=== PATIENT | male | born 1965 | race African-American/Black ===

== ENCOUNTER 2016-11-13 11:26 | Emergency (ER) | payer MEDICAID, OTHER ==
[~2016-11-13] VITALS: Ht 175.3 cm; Wt 78.0 kg
[2016-11-13] MEDS ORDERED: KETOROLAC 60MG/2ML VIAL IM ONE (17:30)
[2016-11-13 18:16] VITALS: BP 146/92
== END 2016-11-13 17:50 | disposition home or self-care (01) ==
LOC: ER 12:35
DX: E11.65 Type 2 diabetes mellitus with hyperglycemia (principal); M25.562 Pain in left knee; I10 Essential (primary) hypertension; V49.9XXA Car occupant (driver) (passenger) injured in unspecified traffic accident, initial encounter; Y93.89 Activity, other specified; Y92.89 Other specified places as the place of occurrence of the external cause; Y99.8 Other external cause status
CPT/HCPCS: 72040; 72100; 73560; 99284

== ENCOUNTER 2018-05-08 01:16 | Inpatient (IN) | payer MEDICAID, OTHER ==
[~2018-05-08] VITALS: Ht 175.3 cm; Wt 97.5 kg
[2018-05-08] MEDS ORDERED: SODIUM CHLORIDE 0.9% 1000ML BAG (SEPSIS BOLUS) IV ONE (03:45)
[2018-05-08] MEDS ORDERED: CEFTRIAXONE 1 G PREMIX 50 ML IV ONE (03:45)
[2018-05-08 04:28] LABS: BASOPHILS % 0.5 % (0.0-2.0); EOSINOPHILS % 1.3 % (0.0-5.0); HEMATOCRIT. 37.8 % (42.0-52.0); HEMOGLOBIN. 12.3 g/dL (14.0-18.0); LYMPHOCYTES % 32.7 % (20.0-50.0); MEAN CORPUSCULAR HEMOGLOBIN 27.8 pg (28.0-32.0); MEAN CORPUSCULAR VOLUME 85.5 fL (80.0-94.0); MEAN PLATELET VOLUME 8.6 fl (7.4-10.4); MONOCYTES % 12.3 % (2.0-8.0); NEUTROPHILS % 53.2 % (40.0-76.0); PLATELET 324 x1000/uL (130-400); RED BLOOD CELL COUNT 4.43 mill/uL (4.7-6.1)
[2018-05-08 04:30] LABS: CHLORIDE 101 mEq/L (98-107)
[2018-05-08 04:32] LABS: INR 1.1; PROTHROMBIN TIME 11.4 sec (9.1-11.1)
[2018-05-08 05:08] LABS: CLARITY URINE CLOUDY (CLEAR); COLOR URINE YELLOW (YELLOW); KETONES URINE NEGATIVE (NEGATIVE); LEUKOCYTE ESTERASE URINE NEGATIVE (NEGATIVE); NITRITE URINE NEGATIVE (NEGATIVE); OCCULT BLOOD URINE NEGATIVE (NEGATIVE); PROTEIN URINE TRACE (NEGATIVE); SPECIFIC GRAVITY URINE 1.005 (1.005-1.030)
[2018-05-08] MEDS ORDERED: KETOROLAC 30MG/ML VIAL IV ONE (06:15)
[2018-05-08] MEDS ORDERED: ASPIRIN 325MG EC TABLET PO ONE (06:30)
[2018-05-08] MEDS ORDERED: SODIUM CHLORIDE 0.9% 1,000 ML IV ONE (06:30)
[2018-05-08 08:40] VITALS: BP 151/79
[2018-05-08] MEDS ORDERED: BLOOD SUGAR DIAGNOSTIC STRIP TEST SCH (08:42)
[2018-05-08] MEDS ORDERED: ACETAMINOPHEN 650MG/20.3ML UDC GT PRN (08:45)
[2018-05-08] MEDS ORDERED: IPRATROPIUM/ALBUTEROL 0.5-3(2.5)MG/3ML NEB INH PRN (08:45)
[2018-05-08] MEDS ORDERED: DEXTROSE 50% WATER 50ML SYRINGE IV PRN ×2 (08:45→09:15)
[2018-05-08] MEDS ORDERED: ACETAMINOPHEN 650MG SUPP PR PRN (08:45)
[2018-05-08] MEDS ORDERED: ACETAMINOPHEN 325MG TABLET PO PRN (08:45)
[2018-05-08] MEDS ORDERED: DIPHENHYDRAMINE 50MG/ML VIAL IV PRN (08:45)
[2018-05-08] MEDS ORDERED: ENOXAPARIN 40MG/0.4ML SYR SUBCUT SCH (08:45)
[2018-05-08] MEDS ORDERED: ONDANSETRON HCL 4MG/2ML INJ IV PRN (08:45)
[2018-05-08] MEDS ORDERED: DOCUSATE SODIUM 100MG CAPSULE PO PRN (08:45)
[2018-05-08] MEDS ORDERED: AZITHROMYCIN 500 MG in DEXT 5% WATER 250 ML IV SCH (08:45)
[2018-05-08] MEDS ORDERED: MAGNESIUM/ALUMINUM HYDROXIDE/SIMETHICONE 30ML UDC PO PRN (08:45)
[2018-05-08] MEDS ORDERED: NA PHOS,M-B/NA PHOS,DI-BA ENEMA 118ML PR PRN (08:45)
[2018-05-08] MEDS ORDERED: CLONIDINE 0.1MG TABLET PO PRN (08:45)
[2018-05-08 10:16] LABS: T4 FREE 1.67 ng/dL (0.76-1.46)
[2018-05-08] MEDS: GUAIFENESIN 200MG/10ML SUGAR FREE UDC PO PRN ×2 (10:20→16:58)
[2018-05-08] MEDS: ENOXAPARIN 30MG/0.3ML SYR SUBCUT SCH ×2 (10:20→21:04)
[2018-05-08] MEDS: HYDROCODONE/ACETAMINOPHEN 5/325MG TABLET PO PRN ×2 (10:35→18:34)
[2018-05-08] MEDS ORDERED: AMLO5TAB88 MT (10:50)
[2018-05-08] MEDS ORDERED: LISI-604 MT (10:50)
[2018-05-08] MEDS ORDERED: PIOG15TA66 MT (10:50)
[2018-05-08] MEDS ORDERED: OMEG100020 MT (10:50)
[2018-05-08] MEDS ORDERED: ATOR20TA65 MT (10:50)
[2018-05-08] MEDS ORDERED: METF-414 MT (10:50)
[2018-05-08] MEDS ORDERED: ASPI-1158 MT (10:50)
[2018-05-08] MEDS ORDERED: GLIP10TA10 MT (10:50)
[2018-05-08 10:59] VITALS: BP 151/89
[2018-05-08] MEDS ORDERED: PNEUMOCOCCAL 23-VAL P-SAC VAC 0.5 ML IM ONE (11:15)
[2018-05-08] MEDS ORDERED: INFLUENZA VIRUS VACCINE(AFLURIA) 0.5ML SYR IM ONE (11:15)
[2018-05-08 12:00] VITALS: BP 166/95
[2018-05-08] MEDS ORDERED: INSULIN LISPRO 100 UNITS/ML SUBCUT SCH (12:15)
[2018-05-08] MEDS: BLOOD SUGAR DIAGNOSTIC STRIP TEST SCH ×3 (12:33→21:05)
[2018-05-08] MEDS: IPRATROPIUM/ALBUTEROL 0.5-3(2.5)MG/3ML NEB INH SCH ×2 (12:37→21:34)
[2018-05-08] MEDS: AZITHROMYCIN 500 MG in DEXT 5% WATER 250 ML IV SCH (12:45)
[2018-05-08] MEDS: INSULIN LISPRO 100 UNITS/ML SUBCUT SCH ×3 (12:53→21:18)
[2018-05-08 13:05] LABS: *BENZODIAZEPINES SCREEN URINE NEGATIVE (NEGATIVE); *COCAINE SCREEN URINE NEGATIVE (NEGATIVE); METHADONE URINE SCREEN NEGATIVE (NEGATIVE); OPIATES URINE SCREEN NEGATIVE (NEGATIVE)
[2018-05-08 13:06] LABS: *AMPHETAMINES SCREEN URINE NEGATIVE (NEGATIVE); *BARBITURATES SCREEN URINE NEGATIVE (NEGATIVE); CANNABINOID URINE SCREEN NEGATIVE (NEGATIVE); PHENCYCLIDINE URINE SCREEN NEGATIVE (NEGATIVE)
[2018-05-08] MEDS ORDERED: MEDICATION NOT ON FORMULARY EA (Amlodipine Besylate 1 TAB) MT SCH (15:30)
[2018-05-08] MEDS: SODIUM CHLORIDE 0.9% INJ 3ML FLUSH IVF SCH ×2 (15:36→21:05)
[2018-05-08] MEDS: PIOGLITAZONE 15MG TABLET PO SCH (15:36)
[2018-05-08 16:29] VITALS: BP 121/78
[2018-05-08] MEDS: FISH OIL/OMEGA-3 FATTY ACIDS 1000MG CAPSULE PO SCH (16:55)
[2018-05-08] MEDS: AMLODIPINE 5MG TABLET PO SCH (16:56)
[2018-05-08] MEDS: METFORMIN HCL 500MG TABLET PO SCH (16:58)
[2018-05-08] MEDS: GLIPIZIDE 10MG TABLET PO SCH (16:58)
[2018-05-08] MEDS ORDERED: MEDICATION NOT ON FORMULARY EA (Metformin Hcl 1 TAB) MT SCH (17:00)
[2018-05-08] MEDS ORDERED: FISH OIL MT SCH (17:00)
[2018-05-08] MEDS ORDERED: EPA MT SCH (17:00)
[2018-05-08] MEDS ORDERED: DHA MT SCH (17:00)
[2018-05-08] MEDS ORDERED: OMEGA MT SCH (17:00)
[2018-05-08] MEDS ORDERED: [UNRECOGNIZED DRUG - OTHER] MT SCH (17:00)
[2018-05-08 18:25] LABS: CREATINE KINASE 328 IU/L (39-308)
[2018-05-08 18:27] LABS: CREATINE KINASE MB FRACTION 3.7 ng/mL (0.5-3.6)
[2018-05-08 20:00] VITALS: BP 150/82
[2018-05-08] MEDS: GUAIFENESIN 600MG ER TABLET PO SCH (21:04)
[2018-05-08] MEDS: ATORVASTATIN CALCIUM 20MG TABLET PO SCH (21:05)
[2018-05-09] VITALS: BP 147/90
[2018-05-09] MEDS: IPRATROPIUM/ALBUTEROL 0.5-3(2.5)MG/3ML NEB INH SCH ×4 (02:04→19:58)
[2018-05-09 03:06] LABS: CREATINE KINASE 277 IU/L (39-308)
[2018-05-09 04:00] VITALS: BP 110/80
[2018-05-09] MEDS: GUAIFENESIN 200MG/10ML SUGAR FREE UDC PO PRN ×2 (04:12→08:53)
[2018-05-09] MEDS: HYDROCODONE/ACETAMINOPHEN 5/325MG TABLET PO PRN ×3 (04:27→20:01)
[2018-05-09] MEDS: SODIUM CHLORIDE 0.9% INJ 3ML FLUSH IVF SCH ×3 (06:21→21:34)
[2018-05-09] MEDS: BLOOD SUGAR DIAGNOSTIC STRIP TEST SCH ×4 (06:21→21:34)
[2018-05-09] MEDS: METFORMIN HCL 500MG TABLET PO SCH ×2 (06:49→17:40)
[2018-05-09] MEDS: INSULIN LISPRO 100 UNITS/ML SUBCUT SCH ×4 (06:50→21:43)
[2018-05-09 07:20] LABS: CHLORIDE 103 mEq/L (98-107)
[2018-05-09 07:28] LABS: BASOPHILS % 0.4 % (0.0-2.0); EOSINOPHILS % 2.6 % (0.0-5.0); HEMOGLOBIN. 11.4 g/dL (14.0-18.0); LYMPHOCYTES % 31.2 % (20.0-50.0); MEAN CORPUSCULAR HEMOGLOBIN 28.2 pg (28.0-32.0); MEAN CORPUSCULAR VOLUME 86.4 fL (80.0-94.0); MEAN PLATELET VOLUME 8.6 fl (7.4-10.4); MONOCYTES % 13.2 % (2.0-8.0); NEUTROPHILS % 52.6 % (40.0-76.0); PLATELET 257 x1000/uL (130-400); RED BLOOD CELL COUNT 4.05 mill/uL (4.7-6.1)
[2018-05-09 07:45] LABS: LDL CHOLESTEROL 46 mg/dL (5-100)
[2018-05-09 07:46] LABS: HDL CHOLESTEROL 24 mg/dL (40-59)
[2018-05-09 08:00] VITALS: BP 95/78
[2018-05-09] MEDS: ENOXAPARIN 30MG/0.3ML SYR SUBCUT SCH ×2 (08:52→21:34)
[2018-05-09] MEDS: ASPIRIN 81MG EC TABLET PO SCH (08:53)
[2018-05-09] MEDS: PIOGLITAZONE 15MG TABLET PO SCH (08:53)
[2018-05-09] MEDS: GLIPIZIDE 10MG TABLET PO SCH ×2 (09:00→17:41)
[2018-05-09] MEDS ORDERED: MEDICATION NOT ON FORMULARY EA (Aspirin (Aspirin Ec) 1 TAB) MT SCH (09:00)
[2018-05-09] MEDS: LISINOPRIL 20MG TABLET GT SCH (09:00)
[2018-05-09] MEDS ORDERED: MEDICATION NOT ON FORMULARY EA (Lisinopril 1 TAB) MT SCH (09:00)
[2018-05-09] MEDS: AMLODIPINE 5MG TABLET PO SCH (09:01)
[2018-05-09] MEDS: FISH OIL/OMEGA-3 FATTY ACIDS 1000MG CAPSULE PO SCH ×2 (09:01→17:40)
[2018-05-09] MEDS: AZITHROMYCIN 500 MG in DEXT 5% WATER 250 ML IV SCH (09:08)
[2018-05-09] MEDS: GUAIFENESIN 600MG ER TABLET PO SCH ×2 (09:08→21:33)
[2018-05-09] MEDS ORDERED: REGADENOSON 0.4 MG/5 ML IV SCH (09:15)
[2018-05-09 12:15] VITALS: BP 143/81
[2018-05-09 16:00] VITALS: BP 122/81
[2018-05-09 20:00] VITALS: BP 154/87
[2018-05-09] MEDS: ATORVASTATIN CALCIUM 20MG TABLET PO SCH (21:33)
[2018-05-10] VITALS: BP 152/67
[2018-05-10] MEDS: HYDROCODONE/ACETAMINOPHEN 5/325MG TABLET PO PRN ×2 (00:03→10:02)
[2018-05-10] MEDS: IPRATROPIUM/ALBUTEROL 0.5-3(2.5)MG/3ML NEB INH SCH ×3 (02:00→14:10)
[2018-05-10 04:00] VITALS: BP 160/102
[2018-05-10] MEDS: BLOOD SUGAR DIAGNOSTIC STRIP TEST SCH ×2 (06:20→11:29)
[2018-05-10] MEDS: SODIUM CHLORIDE 0.9% INJ 3ML FLUSH IVF SCH ×2 (06:20→13:19)
[2018-05-10] MEDS: INSULIN LISPRO 100 UNITS/ML SUBCUT SCH ×3 (06:21→11:35)
[2018-05-10] MEDS: METFORMIN HCL 500MG TABLET PO SCH (07:15)
[2018-05-10] MEDS: GUAIFENESIN 200MG/10ML SUGAR FREE UDC PO PRN (07:38)
[2018-05-10 08:00] VITALS: BP 163/106
[2018-05-10] MEDS ORDERED: REGADENOSON 0.4 MG/5 ML IV ONE (08:54)
[2018-05-10] MEDS: AZITHROMYCIN 500 MG in DEXT 5% WATER 250 ML IV SCH (10:01)
[2018-05-10] MEDS: PIOGLITAZONE 15MG TABLET PO SCH (10:02)
[2018-05-10] MEDS: GLIPIZIDE 10MG TABLET PO SCH (10:02)
[2018-05-10] MEDS: GUAIFENESIN 600MG ER TABLET PO SCH (10:02)
[2018-05-10] MEDS: FISH OIL/OMEGA-3 FATTY ACIDS 1000MG CAPSULE PO SCH (10:02)
[2018-05-10] MEDS: ASPIRIN 81MG EC TABLET PO SCH (10:02)
[2018-05-10] MEDS: AMLODIPINE 5MG TABLET PO SCH (10:02)
[2018-05-10] MEDS: ENOXAPARIN 30MG/0.3ML SYR SUBCUT SCH (10:03)
[2018-05-10] MEDS: LISINOPRIL 20MG TABLET GT SCH (10:03)
[2018-05-10 12:00] VITALS: BP 138/91
[2018-05-10 12:22] LABS: BASOPHILS % 0.6 % (0.0-2.0); EOSINOPHILS % 2.9 % (0.0-5.0); HEMATOCRIT. 37.2 % (42.0-52.0); LYMPHOCYTES % 21.1 % (20.0-50.0); MEAN CORPUSCULAR HEMOGLOBIN 27.7 pg (28.0-32.0); MEAN CORPUSCULAR VOLUME 85.4 fL (80.0-94.0); MEAN PLATELET VOLUME 7.9 fl (7.4-10.4); NEUTROPHILS % 64.4 % (40.0-76.0); PLATELET 264 x1000/uL (130-400); RED BLOOD CELL COUNT 4.35 mill/uL (4.7-6.1); RED CELL DISTRIBUTION WIDTH 12.8 % (11.6-14.6)
[2018-05-10] MEDS ORDERED: COR3 MT (12:23)
[2018-05-10 12:24] LABS: CHLORIDE 99 mEq/L (98-107)
[2018-05-10] MEDS ORDERED: AZIT500T2 MT (12:24)
[2018-05-10] MEDS ORDERED: CARVEDILOL 6.25 MG TABLET PO SCH (12:30)
[2018-05-10 15:54] VITALS: BP 165/83
[2018-05-10 16:00] VITALS: BP 146/78
== END 2018-05-10 16:10 | disposition home or self-care (01) | DRG 243 ==
LOC: ER 01:16 → 5WST 06:20 → EDBEDREQSVC 06:24 → EDBEDREQ 06:26 → ENRESERV 07:33
PROVIDERS: ADMIT Family Medicine; ATTEND Family Medicine
DX: K21.9 Gastro-esophageal reflux disease without esophagitis (principal); B18.2 Chronic viral hepatitis C; J40 Bronchitis, not specified as acute or chronic; E11.9 Type 2 diabetes mellitus without complications; I10 Essential (primary) hypertension; E78.00 Pure hypercholesterolemia, unspecified; F17.210 Nicotine dependence, cigarettes, uncomplicated; E78.5 Hyperlipidemia, unspecified; Z71.6 Tobacco abuse counseling; Z79.82 Long term (current) use of aspirin; Z79.84 Long term (current) use of oral hypoglycemic drugs; Z79.899 Other long term (current) drug therapy
CPT/HCPCS: 36415; 71045; 78452; 80061; 80305; 82550; 82553; 82962; 83036; 83605; 83880; 84145; 84439; 84443; 84484; 85379; 87804; 90686; 90732; 93005; 93017; 93306; 93970; 94640; 96365; 96375; 99285; A9500; J0456; J0696; J1650; J1815; J1885; J2785; J7030; J7060; J7620

== ENCOUNTER 2018-06-17 06:33 | Inpatient (IN) | payer MEDICAID, OTHER ==
[~2018-06-17] VITALS: Ht 175.3 cm; Wt 94.3 kg
[~2018-06-17 06:33] MED LIST: AMLO5TAB88 MT; ASPI-1158 MT; ATOR20TA65 MT; AZIT500T2 MT; COR3 MT; GLIP10TA10 MT; LISI-604 MT; METF-414 MT; OMEG100020 MT; PIOG15TA66 MT
[2018-06-17 08:19] LABS: BASOPHILS % 1.2 % (0.0-2.0); EOSINOPHILS % 9.5 % (0.0-5.0); HEMATOCRIT. 42.7 % (42.0-52.0); LYMPHOCYTES % 19.9 % (20.0-50.0); MEAN CORPUSCULAR HEMOGLOBIN 28.7 pg (28.0-32.0); MEAN CORPUSCULAR VOLUME 87.5 fL (80.0-94.0); MEAN PLATELET VOLUME 9.2 fl (7.4-10.4); MONOCYTES % 9.6 % (2.0-8.0); NEUTROPHILS % 59.8 % (40.0-76.0); PLATELET 160 x1000/uL (130-400); RED BLOOD CELL COUNT 4.88 mill/uL (4.7-6.1)
[2018-06-17 08:24] LABS: CHLORIDE 104 mEq/L (98-107)
[2018-06-17 08:27] LABS: ETHANOL BLOOD < 10 mg/dL
[2018-06-17 08:43] LABS: PROTHROMBIN TIME 10.4 sec (9.1-11.1)
[2018-06-17] MEDS ORDERED: ALBUTEROL (0.083%) 2.5MG/3ML NEB HHN STA (09:09)
[2018-06-17] MEDS ORDERED: KETOROLAC 30MG/ML VIAL IV ONE (09:15)
[2018-06-17] MEDS ORDERED: BENZONATATE 100MG CAPSULE PO ONE (09:45)
[2018-06-17] MEDS ORDERED: SODIUM CHLORIDE 0.9% 1,000 ML IV ONE (09:55)
[2018-06-17 15:30] VITALS: BP 166/117
[2018-06-17] MEDS ORDERED: ACETAMINOPHEN 325MG TABLET PO PRN (15:45)
[2018-06-17] MEDS ORDERED: MAGNESIUM HYDROXIDE 400MG/5ML 30ML UDC PO PRN (15:45)
[2018-06-17] MEDS ORDERED: ONDANSETRON HCL 4MG/2ML INJ IV PRN (15:45)
[2018-06-17] MEDS ORDERED: IPRATROPIUM/ALBUTEROL 0.5-3(2.5)MG/3ML NEB INH PRN (15:45)
[2018-06-17] MEDS ORDERED: CLONIDINE 0.1MG TABLET PO PRN (15:45)
[2018-06-17] MEDS ORDERED: MAGNESIUM/ALUMINUM HYDROXIDE/SIMETHICONE 30ML UDC PO PRN (15:45)
[2018-06-17] MEDS ORDERED: DIPHENHYDRAMINE 50MG/ML VIAL IV PRN (15:45)
[2018-06-17] MEDS ORDERED: IPRATROPIUM/ALBUTEROL 0.5-3(2.5)MG/3ML NEB HHN SCH (15:45)
[2018-06-17] MEDS ORDERED: DEXTROSE 50% WATER 50ML SYRINGE IV PRN (15:45)
[2018-06-17] MEDS ORDERED: TEMAZEPAM 15MG CAPSULE PO PRN (15:45)
[2018-06-17 16:00] VITALS: BP 172/116
[2018-06-17] MEDS ORDERED: HYDRALAZINE 20MG/ML VIAL IV PRN (16:00)
[2018-06-17] MEDS: CARVEDILOL 3.125 MG TABLET PO SCH ×2 (16:03→21:54)
[2018-06-17] MEDS: PROMETHAZINE/DEXTROMETHORPHAN 6.25-15MG/5ML BOTTLE 120ML PO PRN (16:39)
[2018-06-17] MEDS: BLOOD SUGAR DIAGNOSTIC STRIP TEST SCH ×2 (17:02→21:00)
[2018-06-17] MEDS: INSULIN LISPRO 100 UNITS/ML SUBCUT SCH ×2 (17:11→22:08)
[2018-06-17] MEDS: ENOXAPARIN 40MG/0.4ML SYR SUBCUT SCH (17:12)
[2018-06-17] MEDS: METFORMIN HCL 500MG TABLET PO SCH (17:13)
[2018-06-17] MEDS: BENZONATATE 100MG CAPSULE PO SCH (17:13)
[2018-06-17] MEDS: AZITHROMYCIN 500 MG TABLET PO SCH (17:13)
[2018-06-17] MEDS: METHYLPREDNISOLONE SOD SUCC 125 MG/2 ML VIAL IV SCH (17:13)
[2018-06-17] MEDS: IPRATROPIUM/ALBUTEROL 0.5-3(2.5)MG/3ML NEB HHN SCH (20:04)
[2018-06-17] MEDS: ATORVASTATIN CALCIUM 20MG TABLET PO SCH (21:53)
[2018-06-17] MEDS: GUAIFENESIN 600MG ER TABLET PO SCH (21:53)
[2018-06-17] MEDS: HYDRALAZINE HCL 50MG TABLET PO SCH (21:54)
[2018-06-17] MEDS: GUAIFENESIN 200MG/10ML SUGAR FREE UDC PO PRN (22:00)
[2018-06-17] MEDS: SODIUM CHLORIDE 0.9% INJ 3ML FLUSH IVF SCH (22:02)
[2018-06-17] MEDS: INSULIN GLARGINE UD 100 UNITS/ML SYR SUBCUT SCH (22:09)
[2018-06-18] MEDS: METHYLPREDNISOLONE SOD SUCC 125 MG/2 ML VIAL IV SCH ×2 (01:00→09:15)
[2018-06-18] MEDS: BENZONATATE 100MG CAPSULE PO SCH ×3 (02:02→18:13)
[2018-06-18] MEDS: IPRATROPIUM/ALBUTEROL 0.5-3(2.5)MG/3ML NEB HHN SCH ×4 (02:37→21:06)
[2018-06-18] MEDS: HYDRALAZINE HCL 50MG TABLET PO SCH ×3 (06:46→23:03)
[2018-06-18] MEDS: SODIUM CHLORIDE 0.9% INJ 3ML FLUSH IVF SCH ×3 (06:47→22:07)
[2018-06-18 08:00] VITALS: BP 122/79
[2018-06-18] MEDS: BLOOD SUGAR DIAGNOSTIC STRIP TEST SCH ×4 (08:37→21:11)
[2018-06-18] MEDS: ASPIRIN 81MG EC TABLET PO SCH (09:13)
[2018-06-18] MEDS: METFORMIN HCL 500MG TABLET PO SCH ×2 (09:13→18:13)
[2018-06-18] MEDS: CARVEDILOL 3.125 MG TABLET PO SCH ×2 (09:14→21:56)
[2018-06-18] MEDS: AMLODIPINE 5MG TABLET PO SCH (09:15)
[2018-06-18] MEDS: OMEPRAZOLE 20MG CAPSULE EXTENDED RELEASE PO SCH (09:15)
[2018-06-18] MEDS ORDERED: REGADENOSON 0.4 MG/5 ML IV SCH (09:15)
[2018-06-18] MEDS: GUAIFENESIN 600MG ER TABLET PO SCH ×2 (09:15→21:55)
[2018-06-18] MEDS: GLIPIZIDE 10MG TABLET PO SCH (09:15)
[2018-06-18] MEDS: INSULIN LISPRO 100 UNITS/ML SUBCUT SCH ×4 (09:17→22:09)
[2018-06-18] MEDS: GUAIFENESIN 200MG/10ML SUGAR FREE UDC PO PRN ×2 (09:27→18:13)
[2018-06-18] MEDS: INSULIN GLARGINE UD 100 UNITS/ML SYR SUBCUT SCH ×2 (10:00→22:09)
[2018-06-18 12:00] VITALS: BP 123/79
[2018-06-18 12:59] LABS: T4 FREE 1.23 ng/dL (0.76-1.46)
[2018-06-18 16:00] VITALS: BP 130/82
[2018-06-18 17:05] LABS: CREATINE KINASE 87 IU/L (39-308); CREATINE KINASE MB FRACTION 4.8 ng/mL (0.5-3.6)
[2018-06-18] MEDS: AZITHROMYCIN 500 MG TABLET PO SCH (18:13)
[2018-06-18] MEDS: CEFTRIAXONE 1 G PREMIX 50 ML IV SCH (18:14)
[2018-06-18] MEDS: ENOXAPARIN 40MG/0.4ML SYR SUBCUT SCH (18:14)
[2018-06-18 19:27] LABS: *AMPHETAMINES SCREEN URINE NEGATIVE (NEGATIVE); *BARBITURATES SCREEN URINE NEGATIVE (NEGATIVE); *BENZODIAZEPINES SCREEN URINE NEGATIVE (NEGATIVE); CANNABINOID URINE SCREEN NEGATIVE (NEGATIVE); PHENCYCLIDINE URINE SCREEN NEGATIVE (NEGATIVE)
[2018-06-18 19:28] LABS: *COCAINE SCREEN URINE NEGATIVE (NEGATIVE); METHADONE URINE SCREEN NEGATIVE (NEGATIVE); OPIATES URINE SCREEN NEGATIVE (NEGATIVE)
[2018-06-18] MEDS: BUDESONIDE 0.5MG/2ML NEB HHN SCH (21:07)
[2018-06-18] MEDS: ATORVASTATIN CALCIUM 20MG TABLET PO SCH (21:55)
[2018-06-19 00:20] LABS: CREATINE KINASE 92 IU/L (39-308)
[2018-06-19 00:23] LABS: CREATINE KINASE MB FRACTION 4.6 ng/mL (0.5-3.6)
[2018-06-19] MEDS: IPRATROPIUM/ALBUTEROL 0.5-3(2.5)MG/3ML NEB HHN SCH ×4 (01:15→21:52)
[2018-06-19] MEDS: BENZONATATE 100MG CAPSULE PO SCH ×3 (02:30→18:36)
[2018-06-19 06:24] LABS: CHLORIDE 102 mEq/L (98-107)
[2018-06-19 06:39] LABS: CREATINE KINASE 78 IU/L (39-308)
[2018-06-19 06:47] LABS: CREATINE KINASE MB FRACTION 3.7 ng/mL (0.5-3.6)
[2018-06-19] MEDS: BLOOD SUGAR DIAGNOSTIC STRIP TEST SCH ×4 (06:53→21:02)
[2018-06-19] MEDS: SODIUM CHLORIDE 0.9% INJ 3ML FLUSH IVF SCH ×3 (07:00→21:03)
[2018-06-19] MEDS: HYDRALAZINE HCL 50MG TABLET PO SCH ×3 (07:07→21:02)
[2018-06-19 07:26] LABS: HEMATOCRIT. 39.5 % (42.0-52.0); HEMOGLOBIN. 12.5 g/dL (14.0-18.0); MEAN CORPUSCULAR HEMOGLOBIN 27.9 pg (28.0-32.0); MEAN CORPUSCULAR VOLUME 87.9 fL (80.0-94.0); MEAN PLATELET VOLUME 10.3 fl (7.4-10.4); PLATELET 187 x1000/uL (130-400); RED BLOOD CELL COUNT 4.49 mill/uL (4.7-6.1); RED CELL DISTRIBUTION WIDTH 14.1 % (11.6-14.6)
[2018-06-19 08:00] VITALS: BP 129/87
[2018-06-19] MEDS: BUDESONIDE 0.5MG/2ML NEB HHN SCH ×2 (08:20→21:52)
[2018-06-19] MEDS: GUAIFENESIN 600MG ER TABLET PO SCH ×2 (09:35→21:02)
[2018-06-19] MEDS: AMLODIPINE 5MG TABLET PO SCH (09:35)
[2018-06-19] MEDS: OMEPRAZOLE 20MG CAPSULE EXTENDED RELEASE PO SCH (09:35)
[2018-06-19] MEDS: ASPIRIN 81MG EC TABLET PO SCH (09:35)
[2018-06-19] MEDS: GLIPIZIDE 10MG TABLET PO SCH (09:35)
[2018-06-19] MEDS: METFORMIN HCL 500MG TABLET PO SCH ×2 (09:35→18:36)
[2018-06-19] MEDS: CARVEDILOL 3.125 MG TABLET PO SCH ×2 (09:36→21:02)
[2018-06-19] MEDS: INSULIN LISPRO 100 UNITS/ML SUBCUT SCH ×4 (09:38→21:08)
[2018-06-19] MEDS: GUAIFENESIN 200MG/10ML SUGAR FREE UDC PO PRN ×2 (09:41→18:44)
[2018-06-19 11:08] LABS: PLATELET ESTIMATE NORMAL
[2018-06-19 12:00] VITALS: BP 117/81
[2018-06-19 16:00] VITALS: BP 118/75
[2018-06-19] MEDS: AZITHROMYCIN 500 MG TABLET PO SCH (18:36)
[2018-06-19] MEDS: ENOXAPARIN 40MG/0.4ML SYR SUBCUT SCH (18:37)
[2018-06-19] MEDS: CEFTRIAXONE 1 G PREMIX 50 ML IV SCH (18:37)
[2018-06-19 20:00] VITALS: BP 118/81
[2018-06-19] MEDS ORDERED: VITAMINS A AND D OINT TUBE TOP PRN (20:00)
[2018-06-19] MEDS: ATORVASTATIN CALCIUM 20MG TABLET PO SCH (21:02)
[2018-06-19] MEDS: INSULIN GLARGINE UD 100 UNITS/ML SYR SUBCUT SCH (21:03)
[2018-06-19] MEDS: PROMETHAZINE/DEXTROMETHORPHAN 6.25-15MG/5ML BOTTLE 120ML PO PRN (21:14)
[2018-06-20 00:26] VITALS: BP 123/75
[2018-06-20] MEDS: BENZONATATE 100MG CAPSULE PO SCH ×2 (01:20→10:00)
[2018-06-20] MEDS: IPRATROPIUM/ALBUTEROL 0.5-3(2.5)MG/3ML NEB HHN SCH ×2 (03:08→09:11)
[2018-06-20 04:00] VITALS: BP 124/84
[2018-06-20] MEDS: HYDRALAZINE HCL 50MG TABLET PO SCH ×2 (06:00→13:56)
[2018-06-20] MEDS: SODIUM CHLORIDE 0.9% INJ 3ML FLUSH IVF SCH (06:12)
[2018-06-20] MEDS: BLOOD SUGAR DIAGNOSTIC STRIP TEST SCH ×2 (06:12→13:04)
[2018-06-20 08:00] VITALS: BP 126/94
[2018-06-20] MEDS: OMEPRAZOLE 20MG CAPSULE EXTENDED RELEASE PO SCH (08:14)
[2018-06-20] MEDS: GLIPIZIDE 10MG TABLET PO SCH (08:14)
[2018-06-20] MEDS: INSULIN LISPRO 100 UNITS/ML SUBCUT SCH ×2 (08:15→13:05)
[2018-06-20] MEDS: GUAIFENESIN 600MG ER TABLET PO SCH (08:25)
[2018-06-20] MEDS: AMLODIPINE 5MG TABLET PO SCH (08:26)
[2018-06-20] MEDS: GUAIFENESIN 200MG/10ML SUGAR FREE UDC PO PRN (08:27)
[2018-06-20] MEDS: CARVEDILOL 3.125 MG TABLET PO SCH (08:27)
[2018-06-20] MEDS: METFORMIN HCL 500MG TABLET PO SCH (08:27)
[2018-06-20] MEDS: ASPIRIN 81MG EC TABLET PO SCH (08:27)
[2018-06-20] MEDS: BUDESONIDE 0.5MG/2ML NEB HHN SCH (09:12)
[2018-06-20 12:00] VITALS: BP 130/87
[2018-06-20 14:06] VITALS: BP 130/87
== END 2018-06-20 15:05 | disposition home or self-care (01) | DRG 133 ==
LOC: ER 06:33 → 7WST 10:03 → ENRESERV 13:18
PROVIDERS: ADMIT Internal Medicine; ATTEND Internal Medicine
DX: J96.00 Acute respiratory failure, unspecified whether with hypoxia or hypercapnia (principal); I50.23 Acute on chronic systolic (congestive) heart failure; J18.9 Pneumonia, unspecified organism; D72.1 Eosinophilia; I11.0 Hypertensive heart disease with heart failure; E11.9 Type 2 diabetes mellitus without complications; E78.00 Pure hypercholesterolemia, unspecified; E78.5 Hyperlipidemia, unspecified; J44.0 Chronic obstructive pulmonary disease with (acute) lower respiratory infection; F17.200 Nicotine dependence, unspecified, uncomplicated; B19.20 Unspecified viral hepatitis C without hepatic coma; R07.89 Other chest pain
CPT/HCPCS: 36415; 71045; 71250; 80048; 80061; 80305; 80320; 82550; 82553; 82962; 83036; 83880; 84439; 84443; 84484; 85379; 93005; 93306; 93970; 94640; 96361; 96374; 99285; J0696; J1650; J1815; J1885; J2930; J7030; J7050; J7611; J7620; J7626; G0480

== ENCOUNTER 2019-10-13 01:30 | Inpatient (IN) | payer MEDICAID ==
[~2019-10-13] VITALS: Ht 170.2 cm; Wt 102.1 kg
[~2019-10-13 01:30] MED LIST changes: -AZIT500T2 MT; -PIOG15TA66 MT
[2019-10-13] MEDS ORDERED: MORPHINE SULFATE 4 MG/ML CPJ (NOT FOR IM USE) IV ONE (01:45)
[2019-10-13] MEDS ORDERED: FAMOTIDINE 20MG/2ML VIAL IV ONE (01:45)
[2019-10-13] MEDS ORDERED: ONDANSETRON HCL 4MG/2ML INJ IV ONE (01:45)
[2019-10-13 02:54] LABS: CHLORIDE 94 mEq/L (98-107)
[2019-10-13 03:00] LABS: ETHANOL BLOOD < 10 mg/dL
[2019-10-13 03:04] LABS: BASOPHILS % 0.8 % (0.0-2.0); HEMATOCRIT. 47.4 % (42.0-52.0); HEMOGLOBIN. 15.8 g/dL (14.0-18.0); LYMPHOCYTES % 14.5 % (20.0-50.0); MEAN CORPUSCULAR HEMOGLOBIN 27.4 pg (28.0-32.0); MEAN CORPUSCULAR VOLUME 82.3 fL (80.0-94.0); MEAN PLATELET VOLUME 10.6 fl (7.4-10.4); MONOCYTES % 5.1 % (2.0-8.0); NEUTROPHILS % 79.6 % (40.0-76.0); PLATELET 196 x1000/uL (130-400); RED BLOOD CELL COUNT 5.76 mill/uL (4.7-6.1); RED CELL DISTRIBUTION WIDTH 15.9 % (11.6-14.6)
[2019-10-13 03:10] LABS: PROTHROMBIN TIME 11.3 sec (9.6-11.0)
[2019-10-13] MEDS ORDERED: FUROSEMIDE 40MG/4ML VIAL IVP ONE (03:30)
[2019-10-13] MEDS ORDERED: NITROGLYCERIN OINT 1GM/INCH UDPKT TD ONE (03:30)
[2019-10-13] MEDS ORDERED: ASPIRIN 325MG EC TABLET PO ONE (05:45)
[2019-10-13 06:04] LABS: CLARITY URINE CLEAR (CLEAR); COLOR URINE YELLOW (YELLOW); KETONES URINE 3+ (NEGATIVE); LEUKOCYTE ESTERASE URINE NEGATIVE (NEGATIVE); NITRITE URINE NEGATIVE (NEGATIVE); OCCULT BLOOD URINE NEGATIVE (NEGATIVE); PROTEIN URINE 3+ (NEGATIVE)
[2019-10-13 08:30] VITALS: BP 116/76
[2019-10-13] MEDS ORDERED: DEXTROSE 50% WATER 50ML SYRINGE IV PRN (09:15)
[2019-10-13] MEDS ORDERED: FAMOTIDINE 20MG/2ML VIAL IV SCH (09:45)
[2019-10-13] MEDS ORDERED: FUROSEMIDE 20MG/2ML VIAL IVP SCH (10:45)
[2019-10-13] MEDS ORDERED: INSULIN GLARGINE UD 100 UNITS/ML SYR SUBCUT SCH (11:00)
[2019-10-13] MEDS ORDERED: AZITHROMYCIN 500 MG in DEXT 5% WATER 250 ML IV SCH (11:00)
[2019-10-13] MEDS ORDERED: CEFTRIAXONE 1 G PREMIX 50 ML IV SCH (11:00)
[2019-10-13 12:00] VITALS: BP 124/79
[2019-10-13] MEDS ORDERED: ALBUTEROL (0.083%) 2.5MG/3ML NEB HHN SCH (12:00)
[2019-10-13] MEDS ORDERED: BLOOD SUGAR DIAGNOSTIC STRIP TEST SCH (12:40)
[2019-10-13] MEDS ORDERED: INSULIN LISPRO 100 UNITS/ML SUBCUT SCH (13:10)
[2019-10-14] MEDS ORDERED: ENOXAPARIN 40MG/0.4ML SYR SUBCUT SCH (09:00)
== END 2019-10-13 13:12 | disposition left against medical advice (07) | DRG 243 ==
LOC: ER 01:30 → 7WST 04:44 → EDBEDREQ 04:53 → ENRESERV 07:37 → 7WST 08:52
PROVIDERS: ADMIT Internal Medicine; ATTEND Internal Medicine
DX: K21.9 Gastro-esophageal reflux disease without esophagitis (principal); J96.00 Acute respiratory failure, unspecified whether with hypoxia or hypercapnia; Z53.29 Procedure and treatment not carried out because of patient's decision for other reasons; I50.23 Acute on chronic systolic (congestive) heart failure; I11.0 Hypertensive heart disease with heart failure; E11.9 Type 2 diabetes mellitus without complications; R10.9 Unspecified abdominal pain; D72.810 Lymphocytopenia; R74.0 Nonspecific elevation of levels of transaminase and lactic acid dehydrogenase [LDH]; J84.9 Interstitial pulmonary disease, unspecified; Z20.828 Contact with and (suspected) exposure to other viral communicable diseases; B19.20 Unspecified viral hepatitis C without hepatic coma; I42.9 Cardiomyopathy, unspecified; Z87.891 Personal history of nicotine dependence; Z79.899 Other long term (current) drug therapy; Z79.82 Long term (current) use of aspirin
CPT/HCPCS: 36415; 71045; 74176; 80053; 80320; 81003; 82962; 83036; 83880; 84484; 85025; 93005; 99285; J0456; J0696; J1815; J1940; J2270; J2405; J3490; J7060; G0480; U0003-CS

== ENCOUNTER 2020-11-21 04:43 | Inpatient (IN) | payer MEDICAID, OTHER ==
[~2020-11-21] VITALS: Ht 175.3 cm; Wt 87.1 kg
[~2020-11-21 04:43] MED LIST changes: -ASPI-1158 MT; +ASPI-1406 MT; -LISI-604 MT; +LISI20TA31 MT
[2020-11-21] MEDS ORDERED: FUROSEMIDE 40MG/4ML VIAL IV ONE (05:45)
[2020-11-21] MEDS ORDERED: NITROGLYCERIN OINT 1GM/INCH UDPKT TD ONE (05:45)
[2020-11-21 06:12] LABS: HEMATOCRIT. 43.6 % (42.0-52.0); HEMOGLOBIN. 13.7 g/dL (14.0-18.0); MEAN CORPUSCULAR HEMOGLOBIN 25.5 pg (28.0-32.0); MEAN CORPUSCULAR VOLUME 81.2 fL (80.0-94.0); MEAN PLATELET VOLUME 8.8 fl (7.4-10.4); PLATELET 166 x1000/uL (130-400); RED BLOOD CELL COUNT 5.37 mill/uL (4.7-6.1); RED CELL DISTRIBUTION WIDTH 15.9 % (11.6-14.6)
[2020-11-21 06:16] LABS: CHLORIDE 111 mEq/L (98-107)
[2020-11-21 06:20] LABS: ETHANOL BLOOD < 10 mg/dL
[2020-11-21 06:50] LABS: PLATELET ESTIMATE NORMAL
[2020-11-21 08:38] LABS: CLARITY URINE CLEAR (CLEAR); COLOR URINE YELLOW (YELLOW); KETONES URINE NEGATIVE (NEGATIVE); LEUKOCYTE ESTERASE URINE NEGATIVE (NEGATIVE); NITRITE URINE NEGATIVE (NEGATIVE); OCCULT BLOOD URINE 1+ (NEGATIVE); PH URINE 5.5 (4.5-8.0); PROTEIN URINE 3+ (NEGATIVE); SPECIFIC GRAVITY URINE 1.009 (1.005-1.030)
[2020-11-21 08:58] LABS: *AMPHETAMINES SCREEN URINE NEGATIVE (NEGATIVE); *BARBITURATES SCREEN URINE NEGATIVE (NEGATIVE)
[2020-11-21 08:59] LABS: *BENZODIAZEPINES SCREEN URINE NEGATIVE (NEGATIVE); *COCAINE SCREEN URINE PRESUMTIVE POSITIVE (NEGATIVE); CANNABINOID URINE SCREEN PRESUMTIVE POSITIVE (NEGATIVE); METHADONE URINE SCREEN NEGATIVE (NEGATIVE); OPIATES URINE SCREEN NEGATIVE (NEGATIVE); PHENCYCLIDINE URINE SCREEN NEGATIVE (NEGATIVE)
[2020-11-21] MEDS ORDERED: ACETAMINOPHEN 325MG TABLET PO PRN (12:45)
[2020-11-21] MEDS ORDERED: IPRATROPIUM/ALBUTEROL 0.5-3(2.5)MG/3ML NEB HHN PRN (12:45)
[2020-11-21] MEDS ORDERED: ONDANSETRON HCL 4MG/2ML INJ IV PRN (12:45)
[2020-11-21] MEDS ORDERED: DIPHENHYDRAMINE 50MG/ML VIAL IV PRN (12:45)
[2020-11-21] MEDS: ENOXAPARIN 40MG/0.4ML SYR SUBCUT SCH (14:00)
[2020-11-21] MEDS ORDERED: MORPHINE SULFATE 2 MG/ML CPJ (NOT FOR IM USE) IV NR (14:45)
[2020-11-21] MEDS ORDERED: NPH,100V SQ (16:35)
[2020-11-21] MEDS ORDERED: INSU100V37 SQ (16:35)
[2020-11-21] MEDS ORDERED: CARV3.1242 MT (16:35)
[2020-11-21] MEDS ORDERED: INSU100I33 SQ (16:35)
[2020-11-21] MEDS ORDERED: ATOR10TA MT (16:35)
[2020-11-21 16:36] VITALS: BP 177/124
[2020-11-21 16:47] VITALS: BP 177/124
[2020-11-21] MEDS: CLONIDINE 0.1MG TABLET PO PRN (17:09)
[2020-11-21] MEDS: SPIRONOLACTONE 25MG TABLET PO SCH (17:09)
[2020-11-21] MEDS: FUROSEMIDE 40MG/4ML VIAL IVP SCH (17:09)
[2020-11-21] MEDS: LISINOPRIL 5MG TABLET PO SCH (17:09)
[2020-11-21] MEDS: AMLODIPINE 5MG TABLET PO SCH (17:09)
[2020-11-21] MEDS ORDERED: FUROSEMIDE 40MG/4ML VIAL IV SCH (17:15)
[2020-11-21] MEDS ORDERED: DEXTROSE 50% WATER 50ML SYRINGE IV PRN (19:15)
[2020-11-21 20:00] VITALS: BP 136/86
[2020-11-21] MEDS: INSULIN LISPRO 100 UNITS/ML SUBCUT SCH (20:40)
[2020-11-21] MEDS: BLOOD SUGAR DIAGNOSTIC STRIP TEST SCH (20:40)
[2020-11-21] MEDS ORDERED: ATORVASTATIN CALCIUM 40MG TABLET PO SCH (21:00)
[2020-11-22 01:40] VITALS: BP 156/101
[2020-11-22] MEDS: CLONIDINE 0.1MG TABLET PO PRN ×2 (02:30→09:17)
[2020-11-22 04:00] VITALS: BP 149/93
[2020-11-22] MEDS: FUROSEMIDE 40MG/4ML VIAL IVP SCH (05:13)
[2020-11-22 07:08] LABS: BASOPHILS % 0.6 % (0.0-2.0); EOSINOPHILS % 0.9 % (0.0-5.0); HEMOGLOBIN. 13.5 g/dL (14.0-18.0); LYMPHOCYTES % 40.7 % (20.0-50.0); MEAN CORPUSCULAR HEMOGLOBIN 25.4 pg (28.0-32.0); MEAN CORPUSCULAR VOLUME 80.8 fL (80.0-94.0); MONOCYTES % 8.4 % (2.0-8.0); NEUTROPHILS % 49.4 % (40.0-76.0); PLATELET 160 x1000/uL (130-400); RED BLOOD CELL COUNT 5.33 mill/uL (4.7-6.1); RED CELL DISTRIBUTION WIDTH 15.9 % (11.6-14.6)
[2020-11-22] MEDS: BLOOD SUGAR DIAGNOSTIC STRIP TEST SCH ×3 (07:20→12:46)
[2020-11-22 07:25] LABS: CHLORIDE 111 mEq/L (98-107)
[2020-11-22 07:43] LABS: LDL CHOLESTEROL 151 mg/dL (5-100)
[2020-11-22 07:45] LABS: HDL CHOLESTEROL 35 mg/dL (40-59)
[2020-11-22] MEDS: INSULIN LISPRO 100 UNITS/ML SUBCUT SCH ×2 (07:50→12:45)
[2020-11-22] MEDS ORDERED: ASPIRIN 81MG TABLET PO SCH (09:00)
[2020-11-22] MEDS: AMLODIPINE 5MG TABLET PO SCH (09:16)
[2020-11-22 09:17] VITALS: BP 149/110
[2020-11-22] MEDS: SPIRONOLACTONE 25MG TABLET PO SCH (09:17)
[2020-11-22] MEDS: LISINOPRIL 5MG TABLET PO SCH (09:17)
[2020-11-22 10:17] VITALS: BP 130/92
[2020-11-22 12:00] VITALS: BP 130/88
[2020-11-22] MEDS ORDERED: IOHEXOL-300 100 ML BOTTLE ONE (12:02)
[2020-11-22] MEDS: ENOXAPARIN 40MG/0.4ML SYR SUBCUT SCH (12:43)
== END 2020-11-22 16:55 | disposition left against medical advice (07) | DRG 194 ==
LOC: ER 04:43 → EDBEDREQ 12:06 → EDBEDREQTM 12:06 → ENRESERV 15:13 → 7WST 16:22 → 6WST 11-22 01:38
PROVIDERS: ADMIT Internal Medicine; ATTEND Internal Medicine
DX: I11.0 Hypertensive heart disease with heart failure (principal); I21.A1 Myocardial infarction type 2; E88.09 Other disorders of plasma-protein metabolism, not elsewhere classified; I43 Cardiomyopathy in diseases classified elsewhere; N17.9 Acute kidney failure, unspecified; I50.23 Acute on chronic systolic (congestive) heart failure; E11.65 Type 2 diabetes mellitus with hyperglycemia; E78.5 Hyperlipidemia, unspecified; F14.10 Cocaine abuse, uncomplicated; Z20.822 Contact with and (suspected) exposure to COVID-19; Z53.29 Procedure and treatment not carried out because of patient's decision for other reasons; F17.210 Nicotine dependence, cigarettes, uncomplicated; I16.0 Hypertensive urgency; J44.9 Chronic obstructive pulmonary disease, unspecified; Z91.14 Patient's other noncompliance with medication regimen
CPT/HCPCS: 36415; 71045; 71260; 80053; 80061; 80305; 80320; 81003; 82962; 83036; 83735; 83880; 84443; 84484; 85025; 93005; 93306; 93970; 99291; J1650; J1815; J1940; Q9967; U0003; U0005; G0480

== ENCOUNTER 2020-12-16 20:32 | Emergency (ER) | payer OTHER ==
[~2020-12-16] VITALS: Ht 175.3 cm; Wt 89.0 kg
[~2020-12-16 20:32] MED LIST changes: +ATOR10TA MT; +CARV3.1242 MT; +INSU100I33 SQ; +INSU100V37 SQ; +NPH,100V SQ
[2020-12-16] MEDS ORDERED: FUROSEMIDE 40MG/4ML VIAL IV ONE (22:15)
[2020-12-16 22:45] LABS: HEMATOCRIT. 43.9 % (42.0-52.0); HEMOGLOBIN. 13.9 g/dL (14.0-18.0); MEAN CORPUSCULAR HEMOGLOBIN 25.3 pg (28.0-32.0); MEAN CORPUSCULAR VOLUME 79.8 fL (80.0-94.0); MEAN PLATELET VOLUME 8.6 fl (7.4-10.4); PLATELET 145 x1000/uL (130-400); RED CELL DISTRIBUTION WIDTH 16.8 % (11.6-14.6)
[2020-12-16 22:50] LABS: CHLORIDE 109 mEq/L (98-107)
[2020-12-16 23:19] LABS: PLATELET ESTIMATE NORMAL
[2020-12-17 00:31] LABS: CLARITY URINE CLEAR (CLEAR); COLOR URINE YELLOW (YELLOW); KETONES URINE TRACE (NEGATIVE); LEUKOCYTE ESTERASE URINE NEGATIVE (NEGATIVE); NITRITE URINE NEGATIVE (NEGATIVE); OCCULT BLOOD URINE TRACE (NEGATIVE); PROTEIN URINE 4+ (NEGATIVE); SPECIFIC GRAVITY URINE 1.029 (1.005-1.030)
[2020-12-17 00:43] LABS: *AMPHETAMINES SCREEN URINE NEGATIVE (NEGATIVE); *BARBITURATES SCREEN URINE NEGATIVE (NEGATIVE); *BENZODIAZEPINES SCREEN URINE NEGATIVE (NEGATIVE); METHADONE URINE SCREEN NEGATIVE (NEGATIVE); OPIATES URINE SCREEN NEGATIVE (NEGATIVE)
[2020-12-17 00:44] LABS: CANNABINOID URINE SCREEN PRESUMTIVE POSITIVE (NEGATIVE); PHENCYCLIDINE URINE SCREEN NEGATIVE (NEGATIVE)
[2020-12-17 00:45] LABS: *COCAINE SCREEN URINE PRESUMTIVE POSITIVE (NEGATIVE)
[2020-12-17 01:30] VITALS: BP 128/72
[2020-12-17] MEDS ORDERED: FURO-152 MT (01:53)
== END 2020-12-17 01:30 | disposition home or self-care (01) ==
LOC: ER 20:32
DX: R60.0 Localized edema (principal); E10.65 Type 1 diabetes mellitus with hyperglycemia; I11.0 Hypertensive heart disease with heart failure; I50.9 Heart failure, unspecified; J44.9 Chronic obstructive pulmonary disease, unspecified; E78.00 Pure hypercholesterolemia, unspecified; Z91.14 Patient's other noncompliance with medication regimen; Z79.4 Long term (current) use of insulin
CPT/HCPCS: 36415; 71045; 80053; 80305; 81003; 83880; 84484; 85025; 93005; 96374; 99285; J1940

== ENCOUNTER 2021-01-08 08:01 | Emergency (ER) | payer OTHER, MEDICAID ==
[~2021-01-08] VITALS: Ht 175.3 cm; Wt 92.0 kg
[~2021-01-08 08:01] MED LIST changes: +FURO-152 MT
[2021-01-08] MEDS ORDERED: FUROSEMIDE 40MG/4ML VIAL IVP ONE (08:15)
[2021-01-08 08:57] LABS: HEMATOCRIT. 44.6 % (42.0-52.0); MEAN CORPUSCULAR HEMOGLOBIN 25.2 pg (28.0-32.0); MEAN CORPUSCULAR VOLUME 80.5 fL (80.0-94.0); MEAN PLATELET VOLUME 8.8 fl (7.4-10.4); PLATELET 173 x1000/uL (130-400); RED BLOOD CELL COUNT 5.54 mill/uL (4.7-6.1); RED CELL DISTRIBUTION WIDTH 17.7 % (11.6-14.6)
[2021-01-08 09:07] LABS: CHLORIDE 107 mEq/L (98-107)
[2021-01-08 09:35] LABS: PLATELET ESTIMATE NORMAL
[2021-01-08 10:00] VITALS: BP 146/106
[2021-01-08 10:52] LABS: *BARBITURATES SCREEN URINE NEGATIVE (NEGATIVE); *COCAINE SCREEN URINE PRESUMTIVE POSITIVE (NEGATIVE)
[2021-01-08 10:53] LABS: *AMPHETAMINES SCREEN URINE NEGATIVE (NEGATIVE); *BENZODIAZEPINES SCREEN URINE NEGATIVE (NEGATIVE); CANNABINOID URINE SCREEN NEGATIVE (NEGATIVE); METHADONE URINE SCREEN NEGATIVE (NEGATIVE); OPIATES URINE SCREEN NEGATIVE (NEGATIVE); PHENCYCLIDINE URINE SCREEN NEGATIVE (NEGATIVE)
== END 2021-01-08 10:41 | disposition home or self-care (01) ==
LOC: ER 08:01
DX: M79.89 Other specified soft tissue disorders (principal); I11.0 Hypertensive heart disease with heart failure; I50.9 Heart failure, unspecified; E78.00 Pure hypercholesterolemia, unspecified; E11.9 Type 2 diabetes mellitus without complications; J44.1 Chronic obstructive pulmonary disease with (acute) exacerbation; Z91.14 Patient's other noncompliance with medication regimen; Z79.899 Other long term (current) drug therapy; Z79.82 Long term (current) use of aspirin
CPT/HCPCS: 36415; 71045; 80053; 80305; 83880; 84484; 85025; 93005; 93970; 96374; 99285; J1940

== ENCOUNTER 2021-04-08 14:11 | Inpatient (IN) | payer MEDICAID, OTHER ==
[~2021-04-08] VITALS: Ht 175.3 cm; Wt 104.3 kg
[2021-04-08 15:10] LABS: HEMATOCRIT. 39.4 % (42.0-52.0); HEMOGLOBIN. 12.2 g/dL (14.0-18.0); MEAN CORPUSCULAR HEMOGLOBIN 25.1 pg (28.0-32.0); MEAN CORPUSCULAR VOLUME 80.8 fL (80.0-94.0); MEAN PLATELET VOLUME 8.9 fl (7.4-10.4); PLATELET 176 x1000/uL (130-400); RED BLOOD CELL COUNT 4.88 mill/uL (4.7-6.1); RED CELL DISTRIBUTION WIDTH 16.9 % (11.6-14.6)
[2021-04-08 15:16] LABS: CHLORIDE 107 mEq/L (98-107)
[2021-04-08 15:21] LABS: ETHANOL BLOOD < 10 mg/dL
[2021-04-08] MEDS ORDERED: ASPIRIN 81MG TABLET PO ONE (15:45)
[2021-04-08] MEDS ORDERED: FUROSEMIDE 40MG/4ML VIAL IV ONE (15:45)
[2021-04-08] MEDS ORDERED: ENOXAPARIN 80MG/0.8ML SYR SUBCUT ONE (18:00)
[2021-04-08 18:28] LABS: PLATELET ESTIMATE NORMAL
[2021-04-08] MEDS ORDERED: ONDANSETRON HCL 4MG/2ML INJ IV PRN (19:00)
[2021-04-08] MEDS ORDERED: HYDROCODONE/ACETAMINOPHEN 5/325MG TABLET PO PRN (19:00)
[2021-04-08] MEDS ORDERED: ACETAMINOPHEN 325MG TABLET PO PRN (19:00)
[2021-04-08 20:06] LABS: PHOSPHORUS 2.8 mg/dL (2.5-4.9)
[2021-04-08 20:11] LABS: CREATINE KINASE MB FRACTION 5.7 ng/mL (0.5-3.6)
[2021-04-08 20:15] LABS: *AMPHETAMINES SCREEN URINE NEGATIVE (NEGATIVE); *BARBITURATES SCREEN URINE NEGATIVE (NEGATIVE); *BENZODIAZEPINES SCREEN URINE NEGATIVE (NEGATIVE); *COCAINE SCREEN URINE PRESUMTIVE POSITIVE (NEGATIVE)
[2021-04-08 20:16] LABS: CANNABINOID URINE SCREEN PRESUMTIVE POSITIVE (NEGATIVE); METHADONE URINE SCREEN NEGATIVE (NEGATIVE); OPIATES URINE SCREEN NEGATIVE (NEGATIVE); PHENCYCLIDINE URINE SCREEN NEGATIVE (NEGATIVE)
[2021-04-08] MEDS: IPRATROPIUM/ALBUTEROL 0.5-3(2.5)MG/3ML NEB HHN PRN (21:14)
[2021-04-09] MEDS: IPRATROPIUM/ALBUTEROL 0.5-3(2.5)MG/3ML NEB HHN PRN ×2 (00:20→04:49)
[2021-04-09] MEDS ORDERED: NALOXONE HCL 0.4MG/ML VIAL IV PRN (07:45)
[2021-04-09 09:17] LABS: BASOPHILS % 0.5 % (0.0-2.0); EOSINOPHILS % 0.4 % (0.0-5.0); HEMATOCRIT. 37.4 % (42.0-52.0); HEMOGLOBIN. 11.9 g/dL (14.0-18.0); LYMPHOCYTES % 7.4 % (20.0-50.0); MEAN CORPUSCULAR HEMOGLOBIN 25.7 pg (28.0-32.0); MEAN CORPUSCULAR VOLUME 80.8 fL (80.0-94.0); MEAN PLATELET VOLUME 9.8 fl (7.4-10.4); MONOCYTES % 7.5 % (2.0-8.0); NEUTROPHILS % 84.2 % (40.0-76.0); PLATELET 154 x1000/uL (130-400); RED BLOOD CELL COUNT 4.62 mill/uL (4.7-6.1)
[2021-04-09 09:24] LABS: CHLORIDE 106 mEq/L (98-107)
[2021-04-09] MEDS: FUROSEMIDE 40MG/4ML VIAL IV SCH ×2 (09:54→17:39)
[2021-04-09 15:34] VITALS: BP 137/92
[2021-04-09 15:45] VITALS: BP 137/92
[2021-04-09] MEDS ORDERED: DEXTROSE 50% WATER 50ML SYRINGE IV PRN ×2 (15:45)
[2021-04-09] MEDS ORDERED: INFLUENZA VACCINE 05/PF 0.5 ML SYRINGE IM ONE (15:58)
[2021-04-09] MEDS ORDERED: PNEUMOCOCCAL 23-VAL P-SAC VAC 0.5 ML IM ONE (15:59)
[2021-04-09] MEDS ORDERED: ATORVASTATIN CALCIUM 20MG TABLET PO SCH (17:00)
[2021-04-09] MEDS: BLOOD SUGAR DIAGNOSTIC STRIP TEST SCH ×2 (17:17→21:00)
[2021-04-09] MEDS: INSULIN LISPRO 100 UNITS/ML SUBCUT SCH ×2 (17:35→21:00)
[2021-04-09] MEDS: ASPIRIN 81MG EC TABLET PO SCH (17:39)
[2021-04-09 20:00] VITALS: BP 136/92
[2021-04-09] MEDS: ATORVASTATIN CALCIUM 10MG TABLET PO SCH (21:30)
[2021-04-09] MEDS: INSULIN GLARGINE UD 100 UNITS/ML SYR SUBCUT SCH (22:00)
[2021-04-10] VITALS: BP 144/88
[2021-04-10] MEDS: IPRATROPIUM/ALBUTEROL 0.5-3(2.5)MG/3ML NEB HHN PRN ×5 (00:56→21:57)
[2021-04-10 04:00] VITALS: BP 158/91
[2021-04-10] MEDS: BLOOD SUGAR DIAGNOSTIC STRIP TEST SCH ×4 (07:20→21:58)
[2021-04-10 08:30] VITALS: BP 141/99
[2021-04-10 08:46] LABS: HEMATOCRIT. 36.5 % (42.0-52.0); HEMOGLOBIN. 11.6 g/dL (14.0-18.0); MEAN CORPUSCULAR VOLUME 81.8 fL (80.0-94.0); MEAN PLATELET VOLUME 10.3 fl (7.4-10.4); PLATELET 125 x1000/uL (130-400); RED BLOOD CELL COUNT 4.46 mill/uL (4.7-6.1); RED CELL DISTRIBUTION WIDTH 17.4 % (11.6-14.6)
[2021-04-10] MEDS: FUROSEMIDE 40MG/4ML VIAL IV SCH ×2 (09:10→18:07)
[2021-04-10] MEDS: ASPIRIN 81MG EC TABLET PO SCH (09:10)
[2021-04-10] MEDS: INSULIN LISPRO 100 UNITS/ML SUBCUT SCH ×4 (09:11→22:06)
[2021-04-10] MEDS ORDERED: BUMETANIDE 1MG/4ML VIAL IV SCH ×2 (10:35→18:00)
[2021-04-10 11:10] LABS: BG BASE EXCESS -2.7 mmol/L (-2.0-2.0); BG DEOXYHEMOGLOBIN 0.9 % (0.0-5.0); BG FRACTION INSPIRED OXYGEN 60; BG HCO3 ACT 22.5 mmol/L (22.0-26.0); BG METHEMOGLOBIN 0.4 % (0.0-1.5); BG OXYGEN SATURATION 99.1 % (92.0-98.5); BG OXYHEMOGLOBIN 98.7 % (94.0-97.0); BG PCO2 40.6 mmHg (35.0-45.0); BG PH 7.362 (7.350-7.450); BG SAMPLE SITE RIGHT BRACHIAL; BG TOTAL HEMOGLOBIN 12.7 g/dL (12.0-18.0); BG VENT MODE MASK - SIMPLE
[2021-04-10 12:30] VITALS: BP 127/74
[2021-04-10 15:14] LABS: PLATELET ESTIMATE NORMAL
[2021-04-10 16:30] VITALS: BP 150/90
[2021-04-10] MEDS: METHYLPREDNISOLONE SOD SUCC 40 MG/ML VIAL IV SCH ×2 (18:07→23:00)
[2021-04-10 20:00] VITALS: BP 163/101
[2021-04-10] MEDS: ATORVASTATIN CALCIUM 10MG TABLET PO SCH (21:00)
[2021-04-10] MEDS: INSULIN GLARGINE UD 100 UNITS/ML SYR SUBCUT SCH (22:00)
[2021-04-11] VITALS: BP 139/79
[2021-04-11] MEDS: IPRATROPIUM BROMIDE (0.02%) 0.5MG/2.5ML NEB HHN SCH ×6 (00:08→20:49)
[2021-04-11 04:36] VITALS: BP 124/83
[2021-04-11] MEDS: FUROSEMIDE 40MG/4ML VIAL IV SCH (06:14)
[2021-04-11] MEDS: BLOOD SUGAR DIAGNOSTIC STRIP TEST SCH ×4 (06:15→21:06)
[2021-04-11 07:38] LABS: HEMATOCRIT. 36.2 % (42.0-52.0); HEMOGLOBIN. 11.4 g/dL (14.0-18.0); MEAN CORPUSCULAR HEMOGLOBIN 25.9 pg (28.0-32.0); MEAN CORPUSCULAR VOLUME 82.1 fL (80.0-94.0); MEAN PLATELET VOLUME 9.5 fl (7.4-10.4); PLATELET 123 x1000/uL (130-400); RED BLOOD CELL COUNT 4.41 mill/uL (4.7-6.1); RED CELL DISTRIBUTION WIDTH 17.1 % (11.6-14.6)
[2021-04-11 07:56] LABS: CREATINE KINASE MB FRACTION 5.8 ng/mL (0.5-3.6)
[2021-04-11 08:00] VITALS: BP 128/72
[2021-04-11] MEDS: METHYLPREDNISOLONE SOD SUCC 40 MG/ML VIAL IV SCH ×3 (08:45→22:05)
[2021-04-11] MEDS: ASPIRIN 81MG EC TABLET PO SCH (08:45)
[2021-04-11] MEDS: INSULIN LISPRO 100 UNITS/ML SUBCUT SCH ×4 (09:05→20:44)
[2021-04-11] MEDS: ACETAMINOPHEN 325MG TABLET PO PRN (09:13)
[2021-04-11] MEDS: BUMETANIDE 1MG/4ML VIAL IV SCH ×2 (11:20→18:09)
[2021-04-11] MEDS ORDERED: SODIUM POLYSTYRENE SULFONATE 15 G/60 ML BOT PO SCH (11:30)
[2021-04-11 12:00] VITALS: BP 127/82
[2021-04-11] MEDS ORDERED: LIDOCAINE HCL 1% 20ML VIAL (Pyxis) INJ ONE (12:41)
[2021-04-11 16:00] VITALS: BP 124/82
[2021-04-11 16:22] LABS: CLARITY URINE CLEAR (CLEAR); COLOR URINE YELLOW (YELLOW); KETONES URINE NEGATIVE (NEGATIVE); LEUKOCYTE ESTERASE URINE NEGATIVE (NEGATIVE); NITRITE URINE NEGATIVE (NEGATIVE); OCCULT BLOOD URINE TRACE (NEGATIVE); PROTEIN URINE 4+ (NEGATIVE); SPECIFIC GRAVITY URINE 1.015 (1.005-1.030); UROBILINOGEN URINE 0.2 E.U./dL (0.2-1.0)
[2021-04-11] MEDS ORDERED: METOLAZONE 5MG TABLET PO NR (17:30)
[2021-04-11 20:00] VITALS: BP 158/90
[2021-04-11] MEDS: ATORVASTATIN CALCIUM 10MG TABLET PO SCH (20:43)
[2021-04-11] MEDS ORDERED: INSULIN GLARGINE UD 100 UNITS/ML SYR SUBCUT SCH (22:00)
[2021-04-12] VITALS (7 sets, daily range): BP systolic 130–157; BP diastolic 85–107
[2021-04-12 00:10] LABS: PLATELET ESTIMATE SLIGHTLY DECREASED
[2021-04-12] MEDS: IPRATROPIUM BROMIDE (0.02%) 0.5MG/2.5ML NEB HHN SCH (01:32)
[2021-04-12] MEDS ORDERED: IPRATROPIUM BROMIDE (0.02%) 0.5MG/2.5ML NEB INH SCH (04:00)
[2021-04-12] MEDS: BUMETANIDE 1MG/4ML VIAL IV SCH ×3 (06:08→17:11)
[2021-04-12] MEDS: METHYLPREDNISOLONE SOD SUCC 40 MG/ML VIAL IV SCH ×3 (06:08→22:27)
[2021-04-12] MEDS: BLOOD SUGAR DIAGNOSTIC STRIP TEST SCH ×4 (06:18→21:21)
[2021-04-12] MEDS: ALBUTEROL 6.7GM HFA INHALER ORI SCH ×4 (06:18→22:00)
[2021-04-12] MEDS: INSULIN LISPRO 100 UNITS/ML SUBCUT SCH ×4 (06:50→21:28)
[2021-04-12] MEDS ORDERED: IPRATROPIUM/ALBUTEROL 0.5-3(2.5)MG/3ML NEB ORI PRN (07:00)
[2021-04-12] MEDS ORDERED: ATORVASTATIN CALCIUM 10MG TABLET PO SCH (09:00)
[2021-04-12] MEDS: ASPIRIN 81MG EC TABLET PO SCH (09:24)
[2021-04-12] MEDS ORDERED: BUMETANIDE 1MG/4ML VIAL IV SCH (18:00)
[2021-04-12] MEDS ORDERED: CEFTRIAXONE 1 G PREMIX 50 ML IV SCH (20:15)
[2021-04-12] MEDS: ATORVASTATIN CALCIUM 10MG TABLET PO SCH (21:21)
[2021-04-12 21:41] LABS: HEMATOCRIT. 40.4 % (42.0-52.0); HEMOGLOBIN. 12.5 g/dL (14.0-18.0); MEAN CORPUSCULAR HEMOGLOBIN 25.5 pg (28.0-32.0); MEAN CORPUSCULAR VOLUME 82.6 fL (80.0-94.0); MEAN PLATELET VOLUME 9.5 fl (7.4-10.4); PLATELET 193 x1000/uL (130-400); RED CELL DISTRIBUTION WIDTH 16.9 % (11.6-14.6)
[2021-04-12 21:55] LABS: CHLORIDE 99 mEq/L (98-107)
[2021-04-12] MEDS ORDERED: CEFTRIAXONE 1,000 MG in DEXTROSE 5% WATER 50 ML IV SCH (22:30)
[2021-04-12] MEDS: INSULIN GLARGINE UD 100 UNITS/ML SYR SUBCUT SCH (22:37)
[2021-04-12 22:56] LABS: PLATELET ESTIMATE NORMAL
[2021-04-13] VITALS: BP 147/99
[2021-04-13] MEDS: ALBUTEROL (0.083%) 2.5MG/3ML NEB HHN PRN ×4 (01:53→16:08)
[2021-04-13 04:00] VITALS: BP 147/102
[2021-04-13] MEDS: METOLAZONE 5MG TABLET PO SCH (05:12)
[2021-04-13] MEDS: BLOOD SUGAR DIAGNOSTIC STRIP TEST SCH ×4 (06:24→21:46)
[2021-04-13] MEDS: METHYLPREDNISOLONE SOD SUCC 40 MG/ML VIAL IV SCH ×2 (06:24→17:34)
[2021-04-13] MEDS ORDERED: INSULIN LISPRO 100 UNITS/ML SUBCUT NR (07:45)
[2021-04-13] MEDS: INSULIN LISPRO 100 UNITS/ML SUBCUT SCH ×4 (07:54→21:53)
[2021-04-13 08:00] VITALS: BP 132/96
[2021-04-13 08:28] LABS: HEMATOCRIT. 37.5 % (42.0-52.0); HEMOGLOBIN. 11.6 g/dL (14.0-18.0); MEAN CORPUSCULAR HEMOGLOBIN 25.5 pg (28.0-32.0); MEAN CORPUSCULAR VOLUME 82.7 fL (80.0-94.0); MEAN PLATELET VOLUME 9.6 fl (7.4-10.4); PLATELET 174 x1000/uL (130-400); RED BLOOD CELL COUNT 4.54 mill/uL (4.7-6.1); RED CELL DISTRIBUTION WIDTH 16.6 % (11.6-14.6)
[2021-04-13] MEDS: ASPIRIN 81MG EC TABLET PO SCH (09:42)
[2021-04-13] MEDS: BUMETANIDE 1MG/4ML VIAL IV SCH ×3 (09:42→17:34)
[2021-04-13] MEDS: INSULIN GLARGINE UD 100 UNITS/ML SYR SUBCUT SCH (10:06)
[2021-04-13 12:00] VITALS: BP 163/99
[2021-04-13] MEDS: CLONIDINE 0.1MG TABLET PO PRN (13:28)
[2021-04-13 16:00] VITALS: BP 166/87
[2021-04-13 17:21] LABS: PLATELET ESTIMATE NORMAL
[2021-04-13 20:00] VITALS: BP 154/88
[2021-04-13] MEDS ORDERED: VANCOMYCIN 2,000 MG in DEXT 5% WATER 500 ML IV NR (21:00)
[2021-04-13] MEDS: ATORVASTATIN CALCIUM 10MG TABLET PO SCH (21:46)
[2021-04-13] MEDS: MEROPENEM 1,000 MG in SODIUM CHLORIDE 0.9% 100 ML IV SCH (22:00)
[2021-04-13] MEDS ORDERED: INSULIN GLARGINE UD 100 UNITS/ML SYR SUBCUT SCH (22:00)
[2021-04-14] VITALS: BP 135/79
[2021-04-14] MEDS: ALBUTEROL (0.083%) 2.5MG/3ML NEB HHN PRN ×2 (00:25→11:26)
[2021-04-14] MEDS: MEROPENEM 1,000 MG in SODIUM CHLORIDE 0.9% 100 ML IV SCH ×3 (01:18→15:36)
[2021-04-14 04:00] VITALS: BP 148/87
[2021-04-14] MEDS: METOLAZONE 5MG TABLET PO SCH ×2 (06:19→08:21)
[2021-04-14] MEDS: BLOOD SUGAR DIAGNOSTIC STRIP TEST SCH ×4 (06:35→20:56)
[2021-04-14 08:07] VITALS: BP 145/99
[2021-04-14] MEDS: ASPIRIN 81MG EC TABLET PO SCH (08:21)
[2021-04-14] MEDS: INSULIN LISPRO 100 UNITS/ML SUBCUT SCH ×4 (08:22→20:57)
[2021-04-14 08:32] LABS: PHOSPHORUS 2.9 mg/dL (2.5-4.9)
[2021-04-14 08:48] LABS: HEMATOCRIT. 36.5 % (42.0-52.0); HEMOGLOBIN. 11.4 g/dL (14.0-18.0); MEAN CORPUSCULAR HEMOGLOBIN 25.3 pg (28.0-32.0); MEAN CORPUSCULAR VOLUME 81.4 fL (80.0-94.0); MEAN PLATELET VOLUME 10.1 fl (7.4-10.4); PLATELET 190 x1000/uL (130-400); RED BLOOD CELL COUNT 4.49 mill/uL (4.7-6.1); RED CELL DISTRIBUTION WIDTH 16.4 % (11.6-14.6)
[2021-04-14] MEDS: BUMETANIDE 1MG/4ML VIAL IV SCH ×2 (10:02→17:59)
[2021-04-14] MEDS: INSULIN GLARGINE UD 100 UNITS/ML SYR SUBCUT SCH ×2 (10:05→22:00)
[2021-04-14 12:00] VITALS: BP 159/98
[2021-04-14 16:00] VITALS: BP 147/105
[2021-04-14 17:30] LABS: BG BASE EXCESS 3.1 mmol/L (-2.0-2.0); BG CARBOXYHEMOGLOBIN 0.2 % (0.5-1.5); BG DEOXYHEMOGLOBIN 0.3 % (0.0-5.0); BG FRACTION INSPIRED OXYGEN 100; BG HCO3 ACT 27.8 mmol/L (22.0-26.0); BG METHEMOGLOBIN 0.3 % (0.0-1.5); BG OXYGEN SATURATION 99.7 % (92.0-98.5); BG OXYHEMOGLOBIN 99.2 % (94.0-97.0); BG PCO2 42.6 mmHg (35.0-45.0); BG PH 7.432 (7.350-7.450); BG PO2 469.4 mmHg (75.0-100.0); BG SAMPLE SITE RIGHT BRACHIAL; BG TOTAL HEMOGLOBIN 13.4 g/dL (12.0-18.0); BG VENT MODE MASK - NRB
[2021-04-14 17:54] LABS: PLATELET ESTIMATE NORMAL
[2021-04-14 20:00] VITALS: BP 147/102
[2021-04-14] MEDS ORDERED: VANCOMYCIN 1 G PREMIX 200 ML IV SCH (21:00)
[2021-04-14] MEDS: ATORVASTATIN CALCIUM 10MG TABLET PO SCH (21:01)
[2021-04-15 00:32] VITALS: BP 149/95
[2021-04-15] MEDS: MEROPENEM 1,000 MG in SODIUM CHLORIDE 0.9% 100 ML IV SCH ×4 (01:02→21:11)
[2021-04-15 04:00] VITALS: BP 170/105
[2021-04-15] MEDS: BLOOD SUGAR DIAGNOSTIC STRIP TEST SCH ×4 (06:39→21:11)
[2021-04-15 09:05] LABS: PHOSPHORUS 2.5 mg/dL (2.5-4.9)
[2021-04-15] MEDS: INSULIN LISPRO 100 UNITS/ML SUBCUT SCH ×4 (10:11→21:12)
[2021-04-15] MEDS: INSULIN GLARGINE UD 100 UNITS/ML SYR SUBCUT SCH ×2 (10:11→21:13)
[2021-04-15] MEDS: METOLAZONE 5MG TABLET PO SCH (10:12)
[2021-04-15] MEDS: ASPIRIN 81MG EC TABLET PO SCH (10:12)
[2021-04-15] MEDS: ACETAMINOPHEN 325MG TABLET PO PRN (10:12)
[2021-04-15] MEDS: BUMETANIDE 1MG/4ML VIAL IV SCH ×2 (10:14→18:56)
[2021-04-15 10:34] LABS: HEMATOCRIT. 39.7 % (42.0-52.0); HEMOGLOBIN. 12.5 g/dL (14.0-18.0); MEAN CORPUSCULAR HEMOGLOBIN 25.6 pg (28.0-32.0); MEAN CORPUSCULAR VOLUME 81.1 fL (80.0-94.0); MEAN PLATELET VOLUME 10.3 fl (7.4-10.4); PLATELET 217 x1000/uL (130-400); RED CELL DISTRIBUTION WIDTH 16.7 % (11.6-14.6)
[2021-04-15] MEDS: ALBUTEROL 6.7GM HFA INHALER ORI SCH ×3 (11:33→21:12)
[2021-04-15 12:00] VITALS: BP 156/110
[2021-04-15 18:00] VITALS: BP 150/101
[2021-04-15 20:00] VITALS: BP 147/90
[2021-04-15] MEDS: ATORVASTATIN CALCIUM 10MG TABLET PO SCH (21:11)
[2021-04-15 21:51] LABS: PLATELET ESTIMATE NORMAL
[2021-04-16] VITALS: BP 120/75
[2021-04-16] MEDS ORDERED: IPRATROPIUM/ALBUTEROL 0.5-3(2.5)MG/3ML NEB HHN SCH
[2021-04-16 04:00] VITALS: BP 129/81
[2021-04-16] MEDS: MEROPENEM 1,000 MG in SODIUM CHLORIDE 0.9% 100 ML IV SCH ×3 (06:17→22:08)
[2021-04-16] MEDS: BLOOD SUGAR DIAGNOSTIC STRIP TEST SCH ×4 (06:24→21:00)
[2021-04-16 07:14] LABS: HEMATOCRIT. 40.5 % (42.0-52.0); MEAN CORPUSCULAR VOLUME 81.1 fL (80.0-94.0); PLATELET 209 x1000/uL (130-400); RED BLOOD CELL COUNT 4.99 mill/uL (4.7-6.1); RED CELL DISTRIBUTION WIDTH 16.5 % (11.6-14.6)
[2021-04-16 07:21] LABS: PHOSPHORUS 2.5 mg/dL (2.5-4.9)
[2021-04-16] MEDS: INSULIN LISPRO 100 UNITS/ML SUBCUT SCH ×4 (07:50→22:09)
[2021-04-16 08:00] VITALS: BP 137/80
[2021-04-16] MEDS: ACETYLCYSTEINE 100MG/ML 10% VIAL 4ML INH SCH (08:31)
[2021-04-16] MEDS: METOLAZONE 5MG TABLET PO SCH (09:14)
[2021-04-16] MEDS: ASPIRIN 81MG EC TABLET PO SCH (09:14)
[2021-04-16] MEDS: IPRATROPIUM/ALBUTEROL 0.5-3(2.5)MG/3ML NEB HHN PRN ×3 (09:14→16:50)
[2021-04-16] MEDS: BUMETANIDE 1MG/4ML VIAL IV SCH ×3 (09:14→19:11)
[2021-04-16] MEDS: INSULIN GLARGINE UD 100 UNITS/ML SYR SUBCUT SCH ×2 (09:43→22:09)
[2021-04-16] MEDS: ACETAMINOPHEN 325MG TABLET PO PRN (14:45)
[2021-04-16 16:00] VITALS: BP 137/65
[2021-04-16] MEDS ORDERED: IPRATROPIUM/ALBUTEROL 0.5-3(2.5)MG/3ML NEB HHN PRN (17:00)
[2021-04-16 17:07] LABS: PLATELET ESTIMATE NORMAL
[2021-04-16 20:00] VITALS: BP 149/97
[2021-04-16] MEDS: GUAIFENESIN 600MG ER TABLET PO SCH (22:07)
[2021-04-16] MEDS: ATORVASTATIN CALCIUM 10MG TABLET PO SCH (22:07)
[2021-04-16] MEDS: CLONIDINE 0.1MG TABLET PO PRN (22:08)
[2021-04-17] MEDS: IPRATROPIUM/ALBUTEROL 0.5-3(2.5)MG/3ML NEB HHN SCH ×5 (01:30→20:34)
[2021-04-17 04:00] VITALS: BP 152/93
[2021-04-17 05:51] LABS: PHOSPHORUS 2.7 mg/dL (2.5-4.9)
[2021-04-17 05:53] LABS: HEMATOCRIT. 36.2 % (42.0-52.0); HEMOGLOBIN. 11.4 g/dL (14.0-18.0); MEAN CORPUSCULAR HEMOGLOBIN 25.8 pg (28.0-32.0); MEAN CORPUSCULAR VOLUME 81.8 fL (80.0-94.0); MEAN PLATELET VOLUME 9.3 fl (7.4-10.4); PLATELET 178 x1000/uL (130-400); RED BLOOD CELL COUNT 4.42 mill/uL (4.7-6.1); RED CELL DISTRIBUTION WIDTH 16.8 % (11.6-14.6)
[2021-04-17] MEDS: BLOOD SUGAR DIAGNOSTIC STRIP TEST SCH ×4 (06:43→21:42)
[2021-04-17] MEDS: MEROPENEM 1,000 MG in SODIUM CHLORIDE 0.9% 100 ML IV SCH ×2 (06:43→15:30)
[2021-04-17] MEDS: GUAIFENESIN 600MG ER TABLET PO SCH ×2 (09:23→21:42)
[2021-04-17] MEDS: BUMETANIDE 1MG/4ML VIAL IV SCH ×3 (09:23→18:39)
[2021-04-17] MEDS: ASPIRIN 81MG EC TABLET PO SCH (09:23)
[2021-04-17] MEDS: METOLAZONE 5MG TABLET PO SCH (09:23)
[2021-04-17] MEDS: INSULIN LISPRO 100 UNITS/ML SUBCUT SCH ×4 (09:24→21:43)
[2021-04-17 09:47] LABS: BG BASE EXCESS 7.1 mmol/L (-2.0-2.0); BG CARBOXYHEMOGLOBIN 0.5 % (0.5-1.5); BG DEOXYHEMOGLOBIN 11.1 % (0.0-5.0); BG HCO3 ACT 31.6 mmol/L (22.0-26.0); BG METHEMOGLOBIN 0.2 % (0.0-1.5); BG OXYGEN SATURATION 88.8 % (92.0-98.5); BG OXYHEMOGLOBIN 88.2 % (94.0-97.0); BG PCO2 44.1 mmHg (35.0-45.0); BG PH 7.473 (7.350-7.450); BG PO2 54.1 mmHg (75.0-100.0); BG SAMPLE SITE RIGHT RADIAL; BG TOTAL HEMOGLOBIN 13.2 g/dL (12.0-18.0); BG VENT MODE ROOM AIR
[2021-04-17] MEDS: ACETAMINOPHEN 325MG TABLET PO PRN (11:40)
[2021-04-17] MEDS: INSULIN GLARGINE UD 100 UNITS/ML SYR SUBCUT SCH ×2 (11:40→21:43)
[2021-04-17 12:00] VITALS: BP 133/88
[2021-04-17 18:15] LABS: PLATELET ESTIMATE NORMAL
[2021-04-17 20:00] VITALS: BP 178/98
[2021-04-17] MEDS: ACETYLCYSTEINE 100MG/ML 10% VIAL 4ML INH SCH (20:33)
[2021-04-17] MEDS: ATORVASTATIN CALCIUM 10MG TABLET PO SCH (21:42)
[2021-04-17] MEDS: CLONIDINE 0.1MG TABLET PO PRN (21:42)
[2021-04-18 00:35] VITALS: BP 162/98
[2021-04-18] MEDS: IPRATROPIUM/ALBUTEROL 0.5-3(2.5)MG/3ML NEB HHN SCH ×3 (01:03→21:24)
[2021-04-18 04:00] VITALS: BP 156/85
[2021-04-18] MEDS: MEROPENEM 1,000 MG in SODIUM CHLORIDE 0.9% 100 ML IV SCH ×3 (06:32→22:03)
[2021-04-18] MEDS: BLOOD SUGAR DIAGNOSTIC STRIP TEST SCH ×4 (06:32→21:00)
[2021-04-18] MEDS: ACETYLCYSTEINE 100MG/ML 10% VIAL 4ML INH SCH ×2 (08:17→21:24)
[2021-04-18 08:18] VITALS: BP 144/100
[2021-04-18] MEDS: METOLAZONE 5MG TABLET PO SCH (09:03)
[2021-04-18] MEDS: ASPIRIN 81MG EC TABLET PO SCH (09:03)
[2021-04-18] MEDS: GUAIFENESIN 600MG ER TABLET PO SCH ×2 (09:04→22:03)
[2021-04-18] MEDS: BUMETANIDE 1MG/4ML VIAL IV SCH ×3 (09:04→17:39)
[2021-04-18] MEDS: INSULIN LISPRO 100 UNITS/ML SUBCUT SCH ×4 (09:07→22:06)
[2021-04-18] MEDS: INSULIN GLARGINE UD 100 UNITS/ML SYR SUBCUT SCH ×2 (10:15→22:00)
[2021-04-18 12:20] VITALS: BP 138/88
[2021-04-18] MEDS: CLONIDINE 0.2MG TABLET PO SCH ×2 (14:23→22:04)
[2021-04-18 15:34] LABS: BASOPHILS % 0.7 % (0.0-2.0); EOSINOPHILS % 1.9 % (0.0-5.0); HEMOGLOBIN. 11.1 g/dL (14.0-18.0); MEAN CORPUSCULAR VOLUME 81.5 fL (80.0-94.0); MEAN PLATELET VOLUME 9.3 fl (7.4-10.4); NEUTROPHILS % 75.4 % (40.0-76.0); PLATELET 175 x1000/uL (130-400); RED BLOOD CELL COUNT 4.42 mill/uL (4.7-6.1); RED CELL DISTRIBUTION WIDTH 16.9 % (11.6-14.6)
[2021-04-18 15:40] LABS: CHLORIDE 104 mEq/L (98-107)
[2021-04-18 15:46] LABS: PHOSPHORUS 2.9 mg/dL (2.5-4.9)
[2021-04-18 16:35] VITALS: BP 134/88
[2021-04-18 20:00] VITALS: BP 145/85
[2021-04-18] MEDS: ATORVASTATIN CALCIUM 10MG TABLET PO SCH (22:03)
[2021-04-19] VITALS: BP 136/82
[2021-04-19] MEDS: IPRATROPIUM/ALBUTEROL 0.5-3(2.5)MG/3ML NEB HHN SCH ×4 (02:04→20:58)
[2021-04-19 04:00] VITALS: BP 137/94
[2021-04-19] MEDS: CLONIDINE 0.2MG TABLET PO SCH ×3 (06:56→21:49)
[2021-04-19] MEDS: MEROPENEM 1,000 MG in SODIUM CHLORIDE 0.9% 100 ML IV SCH ×3 (06:56→21:50)
[2021-04-19] MEDS: BLOOD SUGAR DIAGNOSTIC STRIP TEST SCH ×4 (06:56→21:06)
[2021-04-19 08:14] VITALS: BP 128/91
[2021-04-19] MEDS: GUAIFENESIN 600MG ER TABLET PO SCH ×2 (08:53→21:48)
[2021-04-19] MEDS: METOLAZONE 5MG TABLET PO SCH (08:53)
[2021-04-19] MEDS: ASPIRIN 81MG EC TABLET PO SCH (08:53)
[2021-04-19] MEDS: INSULIN LISPRO 100 UNITS/ML SUBCUT SCH ×4 (09:29→21:51)
[2021-04-19] MEDS: INSULIN GLARGINE UD 100 UNITS/ML SYR SUBCUT SCH ×2 (09:29→21:51)
[2021-04-19] MEDS: ACETYLCYSTEINE 100MG/ML 10% VIAL 4ML INH SCH ×2 (09:48→14:45)
[2021-04-19 10:59] LABS: BASOPHILS % 0.8 % (0.0-2.0); EOSINOPHILS % 2.2 % (0.0-5.0); HEMATOCRIT. 31.5 % (42.0-52.0); HEMOGLOBIN. 9.9 g/dL (14.0-18.0); LYMPHOCYTES % 11.3 % (20.0-50.0); MEAN CORPUSCULAR HEMOGLOBIN 25.6 pg (28.0-32.0); MEAN CORPUSCULAR VOLUME 81.5 fL (80.0-94.0); MEAN PLATELET VOLUME 9.1 fl (7.4-10.4); MONOCYTES % 10.2 % (2.0-8.0); NEUTROPHILS % 75.5 % (40.0-76.0); PLATELET 157 x1000/uL (130-400); RED BLOOD CELL COUNT 3.86 mill/uL (4.7-6.1); RED CELL DISTRIBUTION WIDTH 16.8 % (11.6-14.6)
[2021-04-19] MEDS: BUMETANIDE 1MG/4ML VIAL IV SCH ×3 (11:07→18:48)
[2021-04-19 11:10] LABS: PHOSPHORUS 3.4 mg/dL (2.5-4.9)
[2021-04-19 12:20] VITALS: BP 121/79
[2021-04-19 16:17] VITALS: BP 121/76
[2021-04-19 20:00] VITALS: BP 122/71
[2021-04-19] MEDS: ATORVASTATIN CALCIUM 10MG TABLET PO SCH (21:49)
[2021-04-20] VITALS: BP 115/79
[2021-04-20] MEDS: IPRATROPIUM/ALBUTEROL 0.5-3(2.5)MG/3ML NEB HHN SCH ×3 (02:31→09:08)
[2021-04-20] MEDS: MEROPENEM 1,000 MG in SODIUM CHLORIDE 0.9% 100 ML IV SCH (06:04)
[2021-04-20] MEDS: CLONIDINE 0.2MG TABLET PO SCH (06:04)
[2021-04-20] MEDS: BLOOD SUGAR DIAGNOSTIC STRIP TEST SCH (06:46)
[2021-04-20] MEDS: INSULIN LISPRO 100 UNITS/ML SUBCUT SCH (06:46)
[2021-04-20 08:00] VITALS: BP 133/87
[2021-04-20] MEDS: ACETYLCYSTEINE 100MG/ML 10% VIAL 4ML INH SCH (09:08)
[2021-04-20] MEDS: GUAIFENESIN 600MG ER TABLET PO SCH (09:12)
[2021-04-20] MEDS: ASPIRIN 81MG EC TABLET PO SCH (09:12)
[2021-04-20] MEDS: METOLAZONE 5MG TABLET PO SCH (09:12)
[2021-04-20] MEDS: BUMETANIDE 1MG/4ML VIAL IV SCH (09:14)
[2021-04-20 09:49] LABS: BASOPHILS % 0.8 % (0.0-2.0); EOSINOPHILS % 1.9 % (0.0-5.0); HEMATOCRIT. 31.5 % (42.0-52.0); HEMOGLOBIN. 10.1 g/dL (14.0-18.0); LYMPHOCYTES % 13.7 % (20.0-50.0); MEAN CORPUSCULAR HEMOGLOBIN 26.1 pg (28.0-32.0); MEAN CORPUSCULAR VOLUME 81.2 fL (80.0-94.0); MONOCYTES % 11.4 % (2.0-8.0); NEUTROPHILS % 72.2 % (40.0-76.0); RED BLOOD CELL COUNT 3.88 mill/uL (4.7-6.1); RED CELL DISTRIBUTION WIDTH 16.4 % (11.6-14.6)
[2021-04-20] MEDS: INSULIN GLARGINE UD 100 UNITS/ML SYR SUBCUT SCH (10:45)
[2021-04-20 13:40] LABS: MEAN PLATELET VOLUME 9.6 fl (7.4-10.4); PLATELET 146 x1000/uL (130-400)
== END 2021-04-20 12:10 | disposition left against medical advice (07) | DRG 720 ==
LOC: ER 14:11 → MICUSO 17:51 → EDBEDREQ 18:44 → 6WST 04-09 15:17 → 7WST 04-14 16:28 → 6WST 04-15 17:06
PROVIDERS: ADMIT Internal Medicine; ATTEND Internal Medicine
PROC: 02HV33Z Insertion of Infusion Device into Superior Vena Cava, Percutaneous Approach (ICD-10-PCS; principal; 2021-04-11)
PROC: B548ZZA Ultrasonography of Superior Vena Cava, Guidance (ICD-10-PCS; 2021-04-11)
DX: A41.9 Sepsis, unspecified organism (principal); J96.01 Acute respiratory failure with hypoxia; I21.A1 Myocardial infarction type 2; I50.43 Acute on chronic combined systolic (congestive) and diastolic (congestive) heart failure; D69.6 Thrombocytopenia, unspecified; E44.0 Moderate protein-calorie malnutrition; I42.9 Cardiomyopathy, unspecified; J44.0 Chronic obstructive pulmonary disease with (acute) lower respiratory infection; R18.8 Other ascites; J68.0 Bronchitis and pneumonitis due to chemicals, gases, fumes and vapors; T40.5X1A Poisoning by cocaine, accidental (unintentional), initial encounter; J44.1 Chronic obstructive pulmonary disease with (acute) exacerbation; N17.9 Acute kidney failure, unspecified; D64.9 Anemia, unspecified; E11.65 Type 2 diabetes mellitus with hyperglycemia; I16.0 Hypertensive urgency; E78.5 Hyperlipidemia, unspecified; F12.10 Cannabis abuse, uncomplicated; E87.5 Hyperkalemia; E78.00 Pure hypercholesterolemia, unspecified; R79.89 Other specified abnormal findings of blood chemistry; F14.129 Cocaine abuse with intoxication, unspecified; Z20.822 Contact with and (suspected) exposure to COVID-19; N39.0 Urinary tract infection, site not specified; I13.0 Hypertensive heart and chronic kidney disease with heart failure and stage 1 through stage 4 chronic kidney disease, or unspecified chronic kidney disease; N18.30 Chronic kidney disease, stage 3 unspecified; E11.22 Type 2 diabetes mellitus with diabetic chronic kidney disease; I87.8 Other specified disorders of veins; B96.20 Unspecified Escherichia coli [E. coli] as the cause of diseases classified elsewhere; Y92.89 Other specified places as the place of occurrence of the external cause; Z79.4 Long term (current) use of insulin; Z79.82 Long term (current) use of aspirin; Z71.51 Drug abuse counseling and surveillance of drug abuser; Z68.34 Body mass index [BMI] 34.0-34.9, adult; Z82.49 Family history of ischemic heart disease and other diseases of the circulatory system; Z83.3 Family history of diabetes mellitus; Z91.14 Patient's other noncompliance with medication regimen
CPT/HCPCS: 36415; 36600; 71045; 71250; 76770; 76937; 78580; 80048; 80053; 80202; 80305; 80320; 81003; 82375; 82550; 82553; 82805; 82962; 83036; 83735; 83880; 84100; 84145; 84484; 85025; 85379; 85651; 87077; 87186; 87426; 87635; 93005; 93306; 93970; 94640; 97116; 97162; 99285; C1725; J0696; J1650; J1815; J1940; J2185; J2405; J2920; J3370; J3490; J7050; J7060; J7608; G0480

== ENCOUNTER 2021-11-05 20:34 | Inpatient (IN) | payer OTHER ==
[~2021-11-05] VITALS: Ht 177.8 cm; Wt 105.7 kg
[2021-11-05] MEDS ORDERED: GLUCAGON,HUMAN RECOMBINANT 1MG/VIAL ONE (20:44)
[2021-11-05] MEDS ORDERED: VANCOMYCIN 1G PREMIX 200 ML IV ONE (20:45)
[2021-11-05] MEDS ORDERED: GLUCAGON,HUMAN RECOMBINANT 1MG/VIAL IM ONE (20:45)
[2021-11-05] MEDS ORDERED: SODIUM CHLORIDE 0.9% 1000ML BAG (SEPSIS BOLUS) IV ONE (20:45)
[2021-11-05] MEDS ORDERED: PIPERACILLIN/TAZ 3.375G PREMIX 50 ML IV ONE (20:45)
[2021-11-05] MEDS ORDERED: DEXTROSE 50% WATER 50ML SYRINGE IV ONE (20:45)
[2021-11-05] MEDS ORDERED: DEXTROSE 10% WATER 500 ML IV ONE (21:15)
[2021-11-05 21:42] LABS: BASOPHILS % 1.3 % (0.0-2.0); EOSINOPHILS % 1.8 % (0.0-5.0); LYMPHOCYTES % 34.4 % (20.0-50.0); MEAN CORPUSCULAR HEMOGLOBIN 24.8 pg (28.0-32.0); MEAN CORPUSCULAR VOLUME 82.4 fL (80.0-94.0); MONOCYTES % 11.4 % (2.0-8.0); NEUTROPHILS % 51.1 % (40.0-76.0); PLATELET 77 x1000/uL (130-400); RED BLOOD CELL COUNT 4.85 mill/uL (4.7-6.1); RED CELL DISTRIBUTION WIDTH 18.6 % (11.6-14.6)
[2021-11-05 21:50] LABS: CHLORIDE 101 mEq/L (98-107); INR 1.7; PROTHROMBIN TIME 17.9 sec (9.6-11.0)
[2021-11-05 21:57] LABS: BG BASE EXCESS -3.3 mmol/L (-2.0-2.0); BG CARBOXYHEMOGLOBIN 2.8 % (0.5-1.5); BG DEOXYHEMOGLOBIN 0.6 % (0.0-5.0); BG FRACTION INSPIRED OXYGEN 100; BG HCO3 ACT 23.6 mmol/L (22.0-26.0); BG METHEMOGLOBIN 0.4 % (0.0-1.5); BG OXYGEN SATURATION 99.4 % (92.0-98.5); BG OXYHEMOGLOBIN 96.2 % (94.0-97.0); BG PCO2 50.2 mmHg (35.0-45.0); BG PO2 274.4 mmHg (75.0-100.0); BG SAMPLE SITE LEFT RADIAL; BG TOTAL HEMOGLOBIN 12.6 g/dL (12.0-18.0); BG VENT MODE VENT - AC
[2021-11-05] MEDS ORDERED: PROPOFOL 10MG/ML 100ML 100 ML IV STA (22:46)
[2021-11-05] MEDS ORDERED: LACTULOSE 20G/30ML UDC NG ONE (23:00)
[2021-11-05] MEDS ORDERED: MIDAZOLAM HCL 2 MG/2 ML VIAL IV ONE (23:00)
[2021-11-06] VITALS (35 sets, daily range): BP systolic 83–160; BP diastolic 46–115
[2021-11-06] MEDS ORDERED: DEXTROSE 50% WATER 50ML SYRINGE IV ONE (00:45)
[2021-11-06 02:38] LABS: CLARITY URINE CLEAR (CLEAR); COLOR URINE YELLOW (YELLOW); KETONES URINE NEGATIVE (NEGATIVE); LEUKOCYTE ESTERASE URINE NEGATIVE (NEGATIVE); NITRITE URINE NEGATIVE (NEGATIVE); OCCULT BLOOD URINE NEGATIVE (NEGATIVE); PH URINE 5.5 (4.5-8.0); PROTEIN URINE 2+ (NEGATIVE); SPECIFIC GRAVITY URINE 1.011 (1.005-1.030)
[2021-11-06] MEDS: DEXTROSE 10% WATER 500ML IV PRN ×2 (06:16→15:45)
[2021-11-06] MEDS ORDERED: PROPOFOL 10MG/ML 100ML 100 ML IV STA (08:59)
[2021-11-06 09:16] LABS: BG BASE EXCESS -6.4 mmol/L (-2.0-2.0); BG CARBOXYHEMOGLOBIN 0.8 % (0.5-1.5); BG DEOXYHEMOGLOBIN 0.8 % (0.0-5.0); BG FRACTION INSPIRED OXYGEN 60; BG HCO3 ACT 20.5 mmol/L (22.0-26.0); BG METHEMOGLOBIN 0.3 % (0.0-1.5); BG OXYGEN SATURATION 99.2 % (92.0-98.5); BG OXYHEMOGLOBIN 98.1 % (94.0-97.0); BG PCO2 45.7 mmHg (35.0-45.0); BG PH 7.269 (7.350-7.450); BG PO2 182.1 mmHg (75.0-100.0); BG SAMPLE SITE RIGHT RADIAL; BG TOTAL HEMOGLOBIN 13.9 g/dL (12.0-18.0); BG VENT MODE VENT - AC
[2021-11-06] MEDS ORDERED: NOREPINEPHRINE 8 MG in DEXT 5% WATER 242 ML IV PRN ×2 (10:45→21:30)
[2021-11-06] MEDS: DEXTROSE 50% WATER 50ML SYRINGE IV PRN ×2 (12:28→17:14)
[2021-11-06] MEDS ORDERED: IPRATROPIUM/ALBUTEROL 0.5-3(2.5)MG/3ML NEB HHN PRN (14:15)
[2021-11-06] MEDS: PANTOPRAZOLE SODIUM 40 MG/VIAL IV SCH (14:32)
[2021-11-06] MEDS: LACTULOSE 20G/30ML UDC PO SCH ×2 (16:46→21:54)
[2021-11-06] MEDS ORDERED: DEXTROSE 50% WATER 50ML SYRINGE IV PRN (17:30)
[2021-11-06] MEDS ORDERED: MAGNESIUM/ALUMINUM HYDROXIDE/SIMETHICONE 30ML UDC PO PRN (17:30)
[2021-11-06] MEDS ORDERED: ONDANSETRON HCL 4MG/2ML INJ IV PRN (17:30)
[2021-11-06] MEDS: PROPOFOL 10MG/ML 100ML 100 ML IV PRN (20:02)
[2021-11-06] MEDS: IPRATROPIUM/ALBUTEROL 0.5-3(2.5)MG/3ML NEB HHN SCH (20:44)
[2021-11-06 22:25] LABS: *AMPHETAMINES SCREEN URINE NEGATIVE (NEGATIVE); *BARBITURATES SCREEN URINE NEGATIVE (NEGATIVE); *BENZODIAZEPINES SCREEN URINE PRESUMTIVE POSITIVE (NEGATIVE); *COCAINE SCREEN URINE PRESUMTIVE POSITIVE (NEGATIVE); CANNABINOID URINE SCREEN NEGATIVE (NEGATIVE); METHADONE URINE SCREEN NEGATIVE (NEGATIVE); OPIATES URINE SCREEN PRESUMTIVE POSITIVE (NEGATIVE); PHENCYCLIDINE URINE SCREEN NEGATIVE (NEGATIVE)
[2021-11-07] VITALS (80 sets, daily range): BP systolic 81–137; BP diastolic 35–91
[2021-11-07] MEDS: IPRATROPIUM/ALBUTEROL 0.5-3(2.5)MG/3ML NEB HHN SCH ×4 (01:04→18:00)
[2021-11-07] MEDS: PROPOFOL 10MG/ML 100ML 100 ML IV PRN ×2 (02:52→07:35)
[2021-11-07] MEDS: BLOOD SUGAR DIAGNOSTIC STRIP TEST SCH ×3 (04:00→21:22)
[2021-11-07] MEDS: LACTULOSE 20G/30ML UDC PO SCH ×3 (05:56→22:20)
[2021-11-07 06:06] LABS: HEMATOCRIT. 44.1 % (42.0-52.0); HEMOGLOBIN. 13.8 g/dL (14.0-18.0); MEAN CORPUSCULAR HEMOGLOBIN 24.7 pg (28.0-32.0); MEAN CORPUSCULAR VOLUME 78.9 fL (80.0-94.0); MEAN PLATELET VOLUME 8.5 fl (7.4-10.4); PLATELET 247 x1000/uL (130-400); RED BLOOD CELL COUNT 5.59 mill/uL (4.7-6.1); RED CELL DISTRIBUTION WIDTH 18.1 % (11.6-14.6)
[2021-11-07 06:34] LABS: CHLORIDE 104 mEq/L (98-107)
[2021-11-07 06:52] LABS: HDL CHOLESTEROL 23 mg/dL (40-59); LDL CHOLESTEROL 46 mg/dL (5-100); T4 FREE 1.29 ng/dL (0.76-1.46)
[2021-11-07] MEDS: PIPERACILLIN/TAZOBACTAM 3.375 G in DEXTROSE 5% WATER 50 ML IV SCH ×3 (08:03→22:20)
[2021-11-07] MEDS: PANTOPRAZOLE SODIUM 40 MG/VIAL IV SCH (08:17)
[2021-11-07 09:12] LABS: BG BASE EXCESS -1.7 mmol/L (-2.0-2.0); BG CARBOXYHEMOGLOBIN 0.9 % (0.5-1.5); BG DEOXYHEMOGLOBIN 1.4 % (0.0-5.0); BG FRACTION INSPIRED OXYGEN 40; BG HCO3 ACT 22.6 mmol/L (22.0-26.0); BG METHEMOGLOBIN 0.3 % (0.0-1.5); BG OXYGEN SATURATION 98.6 % (92.0-98.5); BG OXYHEMOGLOBIN 97.4 % (94.0-97.0); BG PCO2 37.1 mmHg (35.0-45.0); BG PH 7.403 (7.350-7.450); BG PO2 137.8 mmHg (75.0-100.0); BG SAMPLE SITE RIGHT RADIAL; BG TOTAL HEMOGLOBIN 14.1 g/dL (12.0-18.0); BG VENT MODE VENT - AC
[2021-11-07] MEDS ORDERED: PROPOFOL 10MG/ML 100ML 100 ML IV PRN (09:15)
[2021-11-07] MEDS ORDERED: DEXTROSE 10% WATER 1000ML IV PRN (09:30)
[2021-11-07] MEDS ORDERED: VANCOMYCIN 2,000 MG in DEXT 5% WATER 500 ML IV NR (09:30)
[2021-11-07 10:06] LABS: INR 1.4; PROTHROMBIN TIME 14.8 sec (9.6-11.0)
[2021-11-07] MEDS ORDERED: BLOOD SUGAR DIAGNOSTIC STRIP TEST SCH (12:00)
[2021-11-07] MEDS ORDERED: SODIUM BICARBONATE 4% (2.4MEQ) 5ML VIAL IV ONE (12:01)
[2021-11-07] MEDS ORDERED: LIDOCAINE HCL 1% 10 MG/ML 10ML VIAL ONE (12:01)
[2021-11-07 14:19] LABS: AMYLASE 27 IU/L (25-115)
[2021-11-07 16:41] LABS: PLATELET ESTIMATE NORMAL
[2021-11-08] VITALS (73 sets, daily range): BP systolic 103–160; BP diastolic 54–102
[2021-11-08] MEDS: IPRATROPIUM/ALBUTEROL 0.5-3(2.5)MG/3ML NEB HHN SCH ×4 (00:44→20:41)
[2021-11-08 04:59] LABS: HEMATOCRIT. 34.2 % (42.0-52.0); HEMOGLOBIN. 10.7 g/dL (14.0-18.0); MEAN CORPUSCULAR HEMOGLOBIN 24.7 pg (28.0-32.0); MEAN CORPUSCULAR VOLUME 79.4 fL (80.0-94.0); MEAN PLATELET VOLUME 8.6 fl (7.4-10.4); PLATELET 211 x1000/uL (130-400); RED BLOOD CELL COUNT 4.31 mill/uL (4.7-6.1); RED CELL DISTRIBUTION WIDTH 18.2 % (11.6-14.6)
[2021-11-08 05:04] LABS: PHOSPHORUS 4.6 mg/dL (2.5-4.9)
[2021-11-08] MEDS: PIPERACILLIN/TAZOBACTAM 3.375 G in DEXTROSE 5% WATER 50 ML IV SCH ×3 (05:46→22:25)
[2021-11-08] MEDS: VANCOMYCIN 1GM PMX (XELLIA) 200 ML IV SCH (05:46)
[2021-11-08] MEDS: LACTULOSE 20G/30ML UDC PO SCH ×3 (05:46→22:00)
[2021-11-08] MEDS: BLOOD SUGAR DIAGNOSTIC STRIP TEST SCH ×4 (06:30→21:00)
[2021-11-08] MEDS ORDERED: TORS20TA4 PO (07:10)
[2021-11-08] MEDS ORDERED: ALPR-341 PO (07:10)
[2021-11-08] MEDS ORDERED: METF-415 PO (07:21)
[2021-11-08] MEDS ORDERED: FERR325T6 PO (07:21)
[2021-11-08] MEDS ORDERED: EMPA10TA PO (07:21)
[2021-11-08] MEDS ORDERED: NICO4GUM BC (07:21)
[2021-11-08] MEDS ORDERED: METH-773 PO (07:21)
[2021-11-08] MEDS ORDERED: FAMO20TA8 PO (07:21)
[2021-11-08] MEDS ORDERED: GABA300S PO (07:21)
[2021-11-08] MEDS ORDERED: ALBUMIN HUMAN 25GM/100ML (25%) IV NR (08:00)
[2021-11-08] MEDS: PANTOPRAZOLE SODIUM 40 MG/VIAL IV SCH (09:26)
[2021-11-08] MEDS: ENOXAPARIN 40MG/0.4ML SYR SUBCUT SCH (11:28)
[2021-11-08] MEDS ORDERED: VANCOMYCIN 1500MG in DEXTROSE 5% WATER 250ML IV SCH (12:00)
[2021-11-08] MEDS ORDERED: DEXTROSE 50% WATER 50ML SYRINGE IV PRN (12:15)
[2021-11-08 12:42] LABS: PLATELET ESTIMATE NORMAL
[2021-11-08] MEDS: INSULIN LISPRO 100 UNITS/ML SUBCUT SCH ×2 (16:50→21:09)
[2021-11-09] VITALS (29 sets, daily range): BP systolic 114–170; BP diastolic 74–109
[2021-11-09] MEDS: VANCOMYCIN 1GM PMX (XELLIA) 200 ML IV SCH (00:10)
[2021-11-09] MEDS: IPRATROPIUM/ALBUTEROL 0.5-3(2.5)MG/3ML NEB HHN SCH ×4 (01:01→21:05)
[2021-11-09] MEDS: GUAIFENESIN-DM 200MG-20MG/10ML UDC PO PRN ×2 (01:56→20:42)
[2021-11-09] MEDS: HYDROCODONE/ACETAMINOPHEN 10/325MG TABLET PO PRN ×2 (01:56→20:42)
[2021-11-09 05:47] LABS: HEMATOCRIT. 35.5 % (42.0-52.0); HEMOGLOBIN. 10.8 g/dL (14.0-18.0); MEAN CORPUSCULAR HEMOGLOBIN 24.7 pg (28.0-32.0); MEAN PLATELET VOLUME 8.5 fl (7.4-10.4); PLATELET 190 x1000/uL (130-400); RED BLOOD CELL COUNT 4.38 mill/uL (4.7-6.1); RED CELL DISTRIBUTION WIDTH 18.2 % (11.6-14.6)
[2021-11-09] MEDS: LACTULOSE 20G/30ML UDC PO SCH ×4 (06:00→22:09)
[2021-11-09 06:11] LABS: PHOSPHORUS 3.2 mg/dL (2.5-4.9)
[2021-11-09] MEDS: PIPERACILLIN/TAZOBACTAM 3.375 G in DEXTROSE 5% WATER 50 ML IV SCH ×3 (06:38→22:09)
[2021-11-09] MEDS: BLOOD SUGAR DIAGNOSTIC STRIP TEST SCH ×4 (06:44→21:00)
[2021-11-09] MEDS: INSULIN LISPRO 100 UNITS/ML SUBCUT SCH ×4 (06:50→22:10)
[2021-11-09] MEDS: PANTOPRAZOLE SODIUM 40 MG/VIAL IV SCH (09:00)
[2021-11-09] MEDS ORDERED: FUROSEMIDE 20MG TABLET PO SCH (09:45)
[2021-11-09] MEDS: FUROSEMIDE 20MG TABLET PO SCH (11:36)
[2021-11-09] MEDS: ENOXAPARIN 40MG/0.4ML SYR SUBCUT SCH (11:36)
[2021-11-09 21:35] LABS: PLATELET ESTIMATE NORMAL
[2021-11-09] MEDS ORDERED: VANCOMYCIN 1GM PMX (XELLIA) 200 ML IV SCH (23:00)
[2021-11-10] VITALS: BP 140/83
[2021-11-10] MEDS: IPRATROPIUM/ALBUTEROL 0.5-3(2.5)MG/3ML NEB HHN SCH ×4 (01:39→21:47)
[2021-11-10] MEDS: GUAIFENESIN-DM 200MG-20MG/10ML UDC PO PRN (03:09)
[2021-11-10] MEDS: HYDROCODONE/ACETAMINOPHEN 10/325MG TABLET PO PRN ×3 (03:10→19:49)
[2021-11-10 03:30] VITALS: BP 140/92
[2021-11-10] MEDS: LACTULOSE 20G/30ML UDC PO SCH ×4 (05:37→21:48)
[2021-11-10] MEDS: PIPERACILLIN/TAZOBACTAM 3.375 G in DEXTROSE 5% WATER 50 ML IV SCH ×3 (06:14→21:38)
[2021-11-10] MEDS: BLOOD SUGAR DIAGNOSTIC STRIP TEST SCH ×4 (06:14→21:38)
[2021-11-10 06:58] LABS: HEMATOCRIT. 33.5 % (42.0-52.0); HEMOGLOBIN. 10.4 g/dL (14.0-18.0); MEAN CORPUSCULAR HEMOGLOBIN 24.9 pg (28.0-32.0); MEAN CORPUSCULAR VOLUME 80.4 fL (80.0-94.0); MEAN PLATELET VOLUME 8.4 fl (7.4-10.4); PLATELET 178 x1000/uL (130-400); RED BLOOD CELL COUNT 4.17 mill/uL (4.7-6.1); RED CELL DISTRIBUTION WIDTH 18.7 % (11.6-14.6)
[2021-11-10 07:11] LABS: CHLORIDE 106 mEq/L (98-107)
[2021-11-10 07:18] LABS: PHOSPHORUS 2.9 mg/dL (2.5-4.9)
[2021-11-10 08:00] VITALS: BP 138/97
[2021-11-10] MEDS: INSULIN LISPRO 100 UNITS/ML SUBCUT SCH ×4 (09:02→21:47)
[2021-11-10] MEDS: FUROSEMIDE 20MG TABLET PO SCH (09:02)
[2021-11-10] MEDS: PANTOPRAZOLE SODIUM 40 MG/VIAL IV SCH (09:02)
[2021-11-10 12:00] VITALS: BP 117/83
[2021-11-10 12:33] LABS: PLATELET ESTIMATE NORMAL
[2021-11-10] MEDS: ENOXAPARIN 40MG/0.4ML SYR SUBCUT SCH (12:34)
[2021-11-10] MEDS ORDERED: NALOXONE HCL 0.4MG/ML VIAL IV PRN (13:15)
[2021-11-10] MEDS: CLONIDINE 0.1MG TABLET PO SCH ×2 (15:21→21:40)
[2021-11-10 16:00] VITALS: BP 127/85
[2021-11-10 20:00] VITALS: BP 136/99
[2021-11-11] VITALS: BP 136/88
[2021-11-11] MEDS: IPRATROPIUM/ALBUTEROL 0.5-3(2.5)MG/3ML NEB HHN SCH ×4 (02:27→21:56)
[2021-11-11 04:00] VITALS: BP 139/88
[2021-11-11] MEDS: LACTULOSE 20G/30ML UDC PO SCH ×3 (06:00→21:41)
[2021-11-11] MEDS: CLONIDINE 0.1MG TABLET PO SCH (06:00)
[2021-11-11 06:44] LABS: HEMATOCRIT. 34.2 % (42.0-52.0); HEMOGLOBIN. 10.5 g/dL (14.0-18.0); MEAN CORPUSCULAR HEMOGLOBIN 25.2 pg (28.0-32.0); MEAN PLATELET VOLUME 8.3 fl (7.4-10.4); PLATELET 177 x1000/uL (130-400); RED BLOOD CELL COUNT 4.18 mill/uL (4.7-6.1); RED CELL DISTRIBUTION WIDTH 19.1 % (11.6-14.6)
[2021-11-11] MEDS: PIPERACILLIN/TAZOBACTAM 3.375 G in DEXTROSE 5% WATER 50 ML IV SCH ×3 (06:45→21:40)
[2021-11-11] MEDS: BLOOD SUGAR DIAGNOSTIC STRIP TEST SCH ×4 (06:53→21:13)
[2021-11-11 07:25] LABS: PHOSPHORUS 3.1 mg/dL (2.5-4.9)
[2021-11-11 08:00] VITALS: BP 166/105
[2021-11-11] MEDS: INSULIN LISPRO 100 UNITS/ML SUBCUT SCH ×4 (08:47→21:47)
[2021-11-11] MEDS: FUROSEMIDE 40MG TABLET PO SCH (08:51)
[2021-11-11] MEDS: CLONIDINE 0.1MG TABLET PO PRN (08:52)
[2021-11-11] MEDS: HYDROCODONE/ACETAMINOPHEN 10/325MG TABLET PO PRN ×2 (08:53→21:38)
[2021-11-11] MEDS: PANTOPRAZOLE SODIUM 40 MG/VIAL IV SCH (08:53)
[2021-11-11 09:18] LABS: BG BASE EXCESS -0.9 mmol/L (-2.0-2.0); BG CARBOXYHEMOGLOBIN 0.2 % (0.5-1.5); BG DEOXYHEMOGLOBIN 2.3 % (0.0-5.0); BG FRACTION INSPIRED OXYGEN 21; BG HCO3 ACT 22.9 mmol/L (22.0-26.0); BG METHEMOGLOBIN 0.3 % (0.0-1.5); BG OXYGEN SATURATION 97.7 % (92.0-98.5); BG OXYHEMOGLOBIN 97.2 % (94.0-97.0); BG PCO2 34.9 mmHg (35.0-45.0); BG PH 7.435 (7.350-7.450); BG SAMPLE SITE RIGHT RADIAL; BG TOTAL HEMOGLOBIN 11.4 g/dL (12.0-18.0); BG VENT MODE ROOM AIR
[2021-11-11] MEDS: ENOXAPARIN 40MG/0.4ML SYR SUBCUT SCH (11:00)
[2021-11-11 12:00] VITALS: BP 162/103
[2021-11-11] MEDS ORDERED: MIDAZOLAM HCL 5 MG/5 ML VIAL ONE (12:47)
[2021-11-11] MEDS ORDERED: LIDOCAINE HCL 2% JELLY 5ML ONE (12:47)
[2021-11-11] MEDS ORDERED: FENTANYL CITRATE/PF 50MCG/ML 2ML VIAL ONE (12:47)
[2021-11-11] MEDS ORDERED: TETRACAINE/BENZOCAINE/BUTAMBEN 20 GM SPRAY MM ONE (12:48)
[2021-11-11 13:29] LABS: PLATELET ESTIMATE NORMAL
[2021-11-11] MEDS: CLONIDINE 0.3MG TABLET PO SCH ×2 (14:28→21:44)
[2021-11-11 16:00] VITALS: BP 169/95
[2021-11-11 20:00] VITALS: BP 135/94
[2021-11-12] VITALS: BP 118/89
[2021-11-12] MEDS: IPRATROPIUM/ALBUTEROL 0.5-3(2.5)MG/3ML NEB HHN SCH ×4 (02:45→21:35)
[2021-11-12 04:00] VITALS: BP 122/79
[2021-11-12] MEDS: LACTULOSE 20G/30ML UDC PO SCH ×3 (05:51→21:57)
[2021-11-12] MEDS: PIPERACILLIN/TAZOBACTAM 3.375 G in DEXTROSE 5% WATER 50 ML IV SCH ×2 (06:50→13:27)
[2021-11-12] MEDS: CLONIDINE 0.3MG TABLET PO SCH ×3 (06:51→21:57)
[2021-11-12] MEDS: BLOOD SUGAR DIAGNOSTIC STRIP TEST SCH ×4 (06:57→20:31)
[2021-11-12 07:17] LABS: PHOSPHORUS 3.1 mg/dL (2.5-4.9)
[2021-11-12 08:22] VITALS: BP 127/80
[2021-11-12] MEDS: FUROSEMIDE 40MG TABLET PO SCH (08:47)
[2021-11-12] MEDS: PANTOPRAZOLE SODIUM 40 MG/VIAL IV SCH (08:47)
[2021-11-12] MEDS: INSULIN LISPRO 100 UNITS/ML SUBCUT SCH ×4 (08:52→21:59)
[2021-11-12] MEDS: SODIUM POLYSTYRENE SULFONATE 15 G/60 ML BOT PO SCH ×2 (09:00→10:37)
[2021-11-12] MEDS: HYDROCODONE/ACETAMINOPHEN 10/325MG TABLET PO PRN (10:37)
[2021-11-12] MEDS: ENOXAPARIN 40MG/0.4ML SYR SUBCUT SCH (10:46)
[2021-11-12] MEDS ORDERED: INSULIN GLARGINE 100 UNITS/ML SUBCUT NR (11:00)
[2021-11-12 12:23] VITALS: BP 128/79
[2021-11-12 16:07] VITALS: BP 129/74
[2021-11-12] MEDS ORDERED: VANCOMYCIN 1,750 MG in DEXT 5% WATER 500 ML IV NR ×2 (18:00→20:00)
[2021-11-12 20:00] VITALS: BP 126/83
[2021-11-12] MEDS: INSULIN GLARGINE 100 UNITS/ML SUBCUT SCH (21:58)
[2021-11-13] VITALS: BP 120/77
[2021-11-13] MEDS: IPRATROPIUM/ALBUTEROL 0.5-3(2.5)MG/3ML NEB HHN SCH ×4 (02:09→20:12)
[2021-11-13 04:00] VITALS: BP 129/80
[2021-11-13] MEDS: LACTULOSE 20G/30ML UDC PO SCH ×3 (05:29→21:31)
[2021-11-13] MEDS: BLOOD SUGAR DIAGNOSTIC STRIP TEST SCH ×3 (06:26→21:38)
[2021-11-13] MEDS: CLONIDINE 0.3MG TABLET PO SCH ×3 (06:28→21:31)
[2021-11-13] MEDS: INSULIN LISPRO 100 UNITS/ML SUBCUT SCH ×3 (07:50→21:37)
[2021-11-13 08:00] VITALS: BP 122/71
[2021-11-13] MEDS ORDERED: FUROSEMIDE 40MG/4ML VIAL IVP SCH (09:00)
[2021-11-13] MEDS: PANTOPRAZOLE SODIUM 40 MG/VIAL IV SCH (09:09)
[2021-11-13] MEDS: HYDROCODONE/ACETAMINOPHEN 10/325MG TABLET PO PRN ×2 (09:15→21:31)
[2021-11-13] MEDS: ENOXAPARIN 40MG/0.4ML SYR SUBCUT SCH (11:00)
[2021-11-13 12:00] VITALS: BP 124/76
[2021-11-13] MEDS: INSULIN GLARGINE 100 UNITS/ML SUBCUT SCH ×2 (12:22→21:37)
[2021-11-13] MEDS ORDERED: FUROSEMIDE 100MG/10ML VIAL IVP SCH (13:00)
[2021-11-13] MEDS: CLONIDINE 0.1MG TABLET PO PRN (15:36)
[2021-11-13 16:00] VITALS: BP 121/71
[2021-11-13 20:00] VITALS: BP 153/93
[2021-11-14] VITALS: BP 144/87
[2021-11-14] MEDS: IPRATROPIUM/ALBUTEROL 0.5-3(2.5)MG/3ML NEB HHN SCH ×4 (01:23→21:12)
[2021-11-14] MEDS: INSULIN LISPRO 100 UNITS/ML SUBCUT SCH ×4 (07:50→20:16)
[2021-11-14 08:00] VITALS: BP 140/77
[2021-11-14] MEDS: ENOXAPARIN 40MG/0.4ML SYR SUBCUT SCH (11:00)
[2021-11-14 12:00] VITALS: BP 117/79
[2021-11-14] MEDS: BLOOD SUGAR DIAGNOSTIC STRIP TEST SCH ×3 (12:20→20:16)
[2021-11-14] MEDS: LACTULOSE 20G/30ML UDC PO SCH ×2 (14:00→22:00)
[2021-11-14] MEDS: CLONIDINE 0.1MG TABLET PO PRN (14:20)
[2021-11-14] MEDS: CLONIDINE 0.3MG TABLET PO SCH ×2 (14:25→22:00)
[2021-11-14] MEDS: PANTOPRAZOLE SODIUM 40 MG/VIAL IV SCH (15:01)
[2021-11-14] MEDS: INSULIN GLARGINE 100 UNITS/ML SUBCUT SCH ×3 (15:04→22:11)
[2021-11-14 16:00] VITALS: BP 112/81
[2021-11-14] MEDS ORDERED: FUROSEMIDE 40MG/4ML VIAL IVP SCH (17:00)
[2021-11-14] MEDS: VANCOMYCIN 1GM PMX (XELLIA) 200 ML IV SCH ×2 (18:49→20:00)
[2021-11-14 20:00] VITALS: BP 106/73
[2021-11-15] VITALS: BP 123/80
[2021-11-15] MEDS: IPRATROPIUM/ALBUTEROL 0.5-3(2.5)MG/3ML NEB HHN SCH ×3 (01:31→14:19)
[2021-11-15 04:08] VITALS: BP 135/88
[2021-11-15] MEDS: LACTULOSE 20G/30ML UDC PO SCH ×2 (05:27→13:17)
[2021-11-15] MEDS: CLONIDINE 0.3MG TABLET PO SCH ×2 (05:28→14:00)
[2021-11-15] MEDS: INSULIN LISPRO 100 UNITS/ML SUBCUT SCH ×2 (05:47→13:29)
[2021-11-15] MEDS: BLOOD SUGAR DIAGNOSTIC STRIP TEST SCH ×2 (05:47→13:17)
[2021-11-15] MEDS ORDERED: FUROSEMIDE 40MG/4ML VIAL IVP SCH (06:00)
[2021-11-15 07:11] LABS: HEMATOCRIT. 29.8 % (42.0-52.0); HEMOGLOBIN. 9.3 g/dL (14.0-18.0); MEAN CORPUSCULAR HEMOGLOBIN 24.9 pg (28.0-32.0); MEAN CORPUSCULAR VOLUME 80.1 fL (80.0-94.0); MEAN PLATELET VOLUME 9.2 fl (7.4-10.4); PLATELET 168 x1000/uL (130-400); RED BLOOD CELL COUNT 3.72 mill/uL (4.7-6.1); RED CELL DISTRIBUTION WIDTH 18.7 % (11.6-14.6)
[2021-11-15 08:19] LABS: PHOSPHORUS 3.6 mg/dL (2.5-4.9)
[2021-11-15 08:25] VITALS: BP 133/87
[2021-11-15] MEDS ORDERED: ENOXAPARIN 40MG/0.4ML SYR SUBCUT SCH (09:00)
[2021-11-15] MEDS ORDERED: SODIUM POLYSTYRENE SULFONATE 15 G/60 ML BOT PO SCH (09:15)
[2021-11-15] MEDS: PANTOPRAZOLE SODIUM 40 MG/VIAL IV SCH (09:51)
[2021-11-15] MEDS: INSULIN GLARGINE 100 UNITS/ML SUBCUT SCH (09:55)
[2021-11-15] MEDS: CLONIDINE 0.1MG TABLET PO PRN (11:48)
[2021-11-15] MEDS: HYDROCODONE/ACETAMINOPHEN 10/325MG TABLET PO PRN ×2 (11:49→16:42)
[2021-11-15 11:53] VITALS: BP 153/99
[2021-11-15] MEDS ORDERED: FUROSEMIDE 40MG/4ML VIAL IVP NR (15:00)
[2021-11-15 16:35] VITALS: BP 128/79
[2021-11-15] MEDS ORDERED: METOLAZONE 2.5MG TABLET PO NR (16:45)
[2021-11-15 16:56] VITALS: BP 128/79
[2021-11-15] MEDS ORDERED: LACT10SO3 MT (17:06)
[2021-11-15] MEDS ORDERED: CARV25TA47 MT (17:06)
[2021-11-15] MEDS ORDERED: CLON0.2T MT (17:06)
[2021-11-15] MEDS ORDERED: FURO80TA87 MT (17:06)
[2021-11-15] MEDS ORDERED: FUROSEMIDE 100MG/10ML VIAL IVP SCH (18:00)
[2021-11-16 21:24] LABS: PLATELET ESTIMATE NORMAL
[2021-11-16] MEDS ORDERED: CODE473S5 MT (22:22)
[2021-11-16] MEDS ORDERED: HYDR-4009 MT (22:22)
[2021-11-16] MEDS ORDERED: LANTUSUD SUBCUT (22:27)
[2021-11-16] MEDS ORDERED: INSLIS SUBCUT (22:27)
[2021-11-16] MEDS ORDERED: METF-416 MT (22:27)
[2021-11-16] MEDS ORDERED: ALBU6.7H9 INH (22:32)
== END 2021-11-15 18:25 | disposition home health service (06) | DRG 720 ==
LOC: ER 20:34 → ENRESERV 11-06 13:04 → MICUSO 11-06 15:07 → 6WST 11-09 15:05
PROVIDERS: ADMIT Internal Medicine; ATTEND Internal Medicine
PROC: 5A1945Z Respiratory Ventilation, 24-96 Consecutive Hours (ICD-10-PCS; principal; 2021-11-06)
PROC: 0BH17EZ Insertion of Endotracheal Airway into Trachea, Via Natural or Artificial Opening (ICD-10-PCS; 2021-11-06)
PROC: 0W9G3ZZ Drainage of Peritoneal Cavity, Percutaneous Approach (ICD-10-PCS; 2021-11-07)
PROC: 02HV33Z Insertion of Infusion Device into Superior Vena Cava, Percutaneous Approach (ICD-10-PCS; 2021-11-14)
PROC: B5181ZA Fluoroscopy of Superior Vena Cava using Low Osmolar Contrast, Guidance (ICD-10-PCS; 2021-11-14)
DX: A41.01 Sepsis due to Methicillin susceptible Staphylococcus aureus (principal); K72.00 Acute and subacute hepatic failure without coma; I46.9 Cardiac arrest, cause unspecified; I33.0 Acute and subacute infective endocarditis; G93.41 Metabolic encephalopathy; J96.01 Acute respiratory failure with hypoxia; J96.02 Acute respiratory failure with hypercapnia; K65.9 Peritonitis, unspecified; E43 Unspecified severe protein-calorie malnutrition; I50.23 Acute on chronic systolic (congestive) heart failure; D68.9 Coagulation defect, unspecified; E11.649 Type 2 diabetes mellitus with hypoglycemia without coma; N17.9 Acute kidney failure, unspecified; D69.6 Thrombocytopenia, unspecified; I27.29 Other secondary pulmonary hypertension; R65.20 Severe sepsis without septic shock; D64.9 Anemia, unspecified; I16.0 Hypertensive urgency; I27.81 Cor pulmonale (chronic); J44.9 Chronic obstructive pulmonary disease, unspecified; N18.30 Chronic kidney disease, stage 3 unspecified; I13.0 Hypertensive heart and chronic kidney disease with heart failure and stage 1 through stage 4 chronic kidney disease, or unspecified chronic kidney disease; E87.5 Hyperkalemia; E11.22 Type 2 diabetes mellitus with diabetic chronic kidney disease; E78.2 Mixed hyperlipidemia; E87.1 Hypo-osmolality and hyponatremia; F14.129 Cocaine abuse with intoxication, unspecified; T42.4X5A Adverse effect of benzodiazepines, initial encounter; I25.10 Atherosclerotic heart disease of native coronary artery without angina pectoris; Z20.822 Contact with and (suspected) exposure to COVID-19; B95.61 Methicillin susceptible Staphylococcus aureus infection as the cause of diseases classified elsewhere; N50.89 Other specified disorders of the male genital organs; R18.8 Other ascites; Z82.49 Family history of ischemic heart disease and other diseases of the circulatory system; I25.2 Old myocardial infarction; Z79.899 Other long term (current) drug therapy; Z91.19 Patient's noncompliance with other medical treatment and regimen; Z79.4 Long term (current) use of insulin; Z68.33 Body mass index [BMI] 33.0-33.9, adult; K76.9 Liver disease, unspecified
CPT/HCPCS: 31500; 36415; 36573; 36600; 49083; 71045; 76705; 76770; 80048; 80053; 80061; 80076; 80202; 80305; 81003; 82140; 82150; 82330; 82375; 82805; 82962; 83605; 83735; 83880; 84100; 84145; 84439; 84443; 84484; 85025; 87070; 87077; 87186; 87426; 93005; 93306; 93312; 93970; 94002; 94003; 94640; 94644; 99291; C1725; C9113; J1610; J1650; J1815; J1940; J2250; J2543; J2704; J3010; J3370; J3490; J7030; J7060; P9047; A4315